=== PATIENT | male | born 1940 | race Caucasian/White ===

== ENCOUNTER → 2016-12-09 | Outpatient (CLI) | payer OTHER, BC ==
[~2016-12-09] VITALS: Ht 177.8 cm; Wt 146.2 kg
[~2016-12-09] MED LIST: AMLODIPINE BESY10 MG PO; APAP500 PO; CARTIA XT240 M1 PO; CITALOPRAM HBR40 MG PO; CLONAZEPAM0.25 MG PO; FLEXERIL PO; FLOMAX0.4 MG PO; FLONASE 0.05%50 MCG NASAL; GABAPENTIN 100100 MG PO; HYDRALAZINE 2525 MG PO; HYDROCHLOROTHIA25 M2 PO; LIALDA1.2 GM PO; LOMOTIL TABLET1 EACH PO; MOBIC15 MG PO; NORCO 5-325 TA1 EACH PO; OMEPRAZOLE10 MG PO; ONDANSETRON HCL4 M2 PO; PREDNISONE 20 M20 MG PO; PRINIVIL20 M1 PO; RITALIN5 MG PO; TRAMADOL 50 MG50 MG PO; TRAZODONE 150150 M1 PO
--- NOTE | ~2016-12-09 | HPC ---
[facility] [address] [email or web address] [address] PAIN MANAGEMENT CONSULTATION Name: FRANKLIN MCKEON [id number] Admission: 12/09/16 Attend Phys: Greg Longo DO Discharge: Date of : 41 Report #: [id number] THIS REPORT FOR: //name// CC: Juan R Longo The patient is a delightful 76-year-old gentleman I met, initially last June he was extremely disabled and we gave him a series of 3 lumbar epidural injections 06/21/2016, 07/05/2016 and 07/19/2016. Returns to pain clinic today noting those injections afforded dramatic relief, in fact he is significantly more functional. He is massively overweight, BMI is 46.3 kilograms per meter squared. He uses a walker to get around. He tells me that status post the injections he has had near 100% relief for 3-4 months, but is starting to develop more neurogenic claudication symptoms, states that if he stands greater than about 5 minutes his back feels "weak." He has ongoing pain in the low back. He rates his current pain at about 6 on a 0-10 visual analog scale. PHYSICAL EXAMINATION: Shows a 76-year-old gentleman, very jovial. BMI is 46.3 kilograms per meter squared. Blood pressure 158/82, pulse 84, respirations 20. Lower extremity strength is generally symmetric. Rises from chair using armrest. Diffuse tenderness across the low back, positive straight leg raise bilaterally. ASSESSMENT: Symptomatic lumbar radiculopathy, component of lumbar radiculopathy secondary to spinal stenosis, neurogenic claudication symptoms in a gentleman who takes tramadol for p.r.n. pain, gabapentin 100 mg one in the morning, 1 at noon, and 2 at night, multiple central acting agents including citalopram, clonazepam, trazodone. Uses p.r.n. tramadol for pain, meloxicam daily. Hydralazine and Prinivil as well as hydrochlorothiazide and amlodipine for hypertension. As noted on the EMR, blood pressure relatively controlled at , pulse 84, respirations are 20. ASSESSMENT: Symptomatic lumbar radiculopathy secondary to spinal stenosis in a patient with multiple comorbidities. RECOMMENDATION: We are going to repeat epidural injection sometime after December 20 (initial injection 06/21/2016). I talked about perhaps doing an injection every 2 months or more as needed for symptom management, strongly encouraged the patient increase physical activity. He is planning on moving to a detention facility where he may be able to participate in some physical therapy courses. Encouraged him to look into this activities as well. [address] [address] PAIN MANAGEMENT CONSULTATION Name: FRANKLIN MCKEON Room #: REG CLI Nish#: [id number] Admission: 12/09/16 Attend Phys: Greg Longo DO Discharge: Date of : 41 Report #: [id number] The patient discharged in good and stable condition. Follow up in 2 weeks for epidural injection under fluoroscopy. By: [id number] Greg Longo DO /nt
[2016-12-09 10:27] VITALS: BP 158/82
== END | disposition home or self-care (01) ==
LOC: PAIN 06:42
DX: M48.06 Spinal stenosis, lumbar region (principal); G89.29 Other chronic pain; I73.9 Peripheral vascular disease, unspecified; Z87.891 Personal history of nicotine dependence

== ENCOUNTER → 2016-12-26 | Outpatient (CLI) | payer OTHER, BC ==
[~2016-12-26] VITALS: Ht 177.8 cm; Wt 144.9 kg
--- NOTE | ~2016-12-26 | HPC ---
[facility] [place] [address] PAIN MANAGEMENT CONSULTATION Name: MIKEFRANKLIN HUITRONDOMINIC DOYLE Room #: REG [facility] Nancy.#: [id number] Admission: 12/26/16 Attend Phys: Greg Longo DO Discharge: Date of : 41 Report #: [id number] THIS REPORT FOR: //name// CC: Juan R Longo The patient is a 76-year-old gentleman being treated for lumbar radiculopathy secondary to spinal stenosis. He had a series of three epidural injections with 60-80% overall improvement of baseline pain. The pain has gradually begun to recur. It has been 6 months since his last injection started, we elected to repeat the cycle again today. We discussed this at last visit on 12/09/2016. He returns to pain clinic today, he is doing water aerobics with some increase in axial back pain, but notes his radicular pain continues to be problematic. Physical exam is unchanged from last visit for 12/09/2016, when we sought authorization for epidural injection today. ASSESSMENT: Symptomatic lumbar radiculopathy. PROCEDURE: Lumbar epidural injection under fluoroscopy. PROCEDURE NOTE: After both written and informed consent to include risk of spinal cord damage, increased pain, weakness and dural puncture, the patient was taken to the fluoroscopy suite, placed in the prone position. After sterile prep and drape, a skin wheal with lidocaine was raised. A 4-1/2-inch 22-gauge epidural Tuohy needle was inserted in the midline at L4-L5 with good loss to resistance. Negative aspiration for cerebrospinal fluid or blood was noted. Then 1 mL of Omnipaque under biplanar fluoroscopy showed good spread within the epidural space. This was followed with 80 mg of triamcinolone plus 1 mL of 1.5% preservative-free Xylocaine, 0.5 mL Xylocaine was then injected to flush the needle; it was removed. The patient was monitored for an appropriate period of time and discharged in good and stable condition. <ELECTRONICALLY SIGNED> By: Greg Longo DO 12/27/16 0704 1213 1531 Greg Longo DO /nt
[2016-12-26 11:10] VITALS: BP 157/74
== END | disposition home or self-care (01) ==
LOC: PAIN 07:05
DX: M48.06 Spinal stenosis, lumbar region (principal); Z87.891 Personal history of nicotine dependence

== ENCOUNTER → 2017-04-04 | Outpatient (CLI) | payer OTHER, BC ==
[~2017-04-04] VITALS: Ht 177.8 cm; Wt 151.5 kg
--- NOTE | ~2017-04-04 | HPC ---
[facility] [place] [address] PAIN MANAGEMENT CONSULTATION Name: MIKEFRANKLIN HUITRONDOMINIC DOYLE Room #: REG SORAYA Mock#: [id number] Admission: 04/04/17 Attend Phys: Greg Longo DO Discharge: Date of : 41 Report #: [id number] THIS REPORT FOR: //name// CC: Juan R Longo The patient is a 76-year-old gentleman being treated for symptomatic lumbar radiculopathy secondary to spinal stenosis. He is morbidly obese and has multiple comorbidities. He is not a surgical candidate. MRI of the lumbar spine notes large right paracentral disk at L4-L5, behind the L5 vertebral body causing mass effect on the right L5 nerve root. He had his last lumbar epidural injection in March (prior he had 3 injections in 2015). The patient reports today that lumbar epidural injection at L4-L5 at last visit afforded 70% relief for 10 weeks. Pain has gradually begun to recur. He notes pain in the low back, right buttock and leg. PHYSICAL EXAMINATION: Relatively unchanged, 76-year-old gentleman, BMI is 47.9 kilograms per meter squared. Vital signs stable as noted in the EMR. Rises chair using armrest, antalgic gait, uses a walker for balance. Positive straight leg raise on the right with decreased strength on this side. ASSESSMENT: Symptomatic lumbar radiculopathy secondary to spinal stenosis. RECOMMENDATIONS: Repeat epidural injection under fluoroscopy today. Follow up simply as needed. We will try and use these interventions as infrequently as possible, trying to get 2-3 months at a minimum between shots. PROCEDURE NOTE: Lumbar epidural injection under fluoroscopy. PROCEDURE: Lumbar epidural steroid injection. PROCEDURE NOTE: After both written and informed consent to include risk of spinal cord damage, increased pain, weakness and dural puncture, the patient was taken to the fluoroscopy suite, placed in the prone position. After sterile prep and drape, a skin wheal with lidocaine was raised. A 4.5-inch 20-gauge Tuohy needle was inserted in the midline at L4-L5 with good loss to resistance. Negative aspiration for cerebrospinal fluid or blood was noted. Then 1 mL of Omnipaque under biplanar fluoroscopy showed good spread within the epidural space. This was followed with 80 mg of triamcinolone plus 1 mL of 1.5% preservative-free Xylocaine, 0.5 mL Xylocaine was then injected to flush the needle; it was removed. The patient was monitored for an appropriate period of time and discharged in good and stable condition. <ELECTRONICALLY SIGNED> By: Greg Longo DO 04/07/17 1427 1216 1319 Greg Longo DO /nt
[2017-04-04 10:07] VITALS: BP 166/76
== END | disposition home or self-care (01) ==
LOC: PAIN 07:39
DX: M54.16 Radiculopathy, lumbar region (principal); M48.06 Spinal stenosis, lumbar region; Z87.891 Personal history of nicotine dependence

== ENCOUNTER → 2017-06-13 | Outpatient (CLI) | payer OTHER, BC ==
[~2017-06-13] VITALS: Ht 177.8 cm; Wt 151.2 kg
--- NOTE | ~2017-06-13 | HPC ---
[facility] [place] [address] PAIN MANAGEMENT CONSULTATION Name: MIKEFRANKLIN CERVANTES Room #: REG [facility] Nish#: [id number] Admission: 06/13/17 Attend Phys: Greg Longo DO Discharge: Date of : 41 Report #: [id number] THIS REPORT FOR: //name// CC: Juan R Longo HISTORY OF PRESENT ILLNESS: The patient is a pleasant 76-year-old gentleman well known to pain clinic, typically treated for symptomatic lumbar radiculopathy secondary to spinal stenosis. Comorbidities include morbid obesity. He is not a surgical candidate with multiple comorbidities including coronary artery disease. He has done well with occasional epidural injections that have kept him functional. Last injection was in December 26. Prior, he had had 3 injections in 2016. He returns to pain clinic today noting pain has begun to recur. It is primarily in the right low back, feels like his leg is about to give out. He uses a walker to get around. PHYSICAL EXAMINATION: Shows pleasant 76-year-old gentleman. BMI is quite elevated at 47.8 kilograms per meter squared. Vital signs are generally stable with nominal hypertension 157/86. Rises from chair using the armrest and walks with a walker. Diffuse tenderness across the low back. Favors the right leg. Positive straight leg raise on the right with slight decreased right leg strength. Reviewed diagnostic findings including MRI of the lumbar spine from June 2016. He has a large right paracentral disk protrusion at L4-L5. Again, not a surgical candidate comorbidities. RECOMMENDATION: Epidural injection under fluoroscopy today. Follow up simply as needed. ASSESSMENT: Symptomatic lumbar radiculopathy ____ spinal stenosis. PROCEDURE: Lumbar epidural injection under fluoroscopy. PROCEDURE NOTE: After both written and informed consent to include risk of spinal cord damage, increased pain, weakness and dural puncture, the patient was taken to the fluoroscopy suite, placed in the prone position. After sterile prep and drape, a skin wheal with lidocaine was raised. A 4.5 inch Tuohy needle was inserted in the midline at L3-L4 with good loss to resistance. Negative aspiration for cerebrospinal fluid or blood was noted. Then 1 mL of Omnipaque under biplanar fluoroscopy showed good spread within the epidural space. This was followed with 80 mg of triamcinolone plus 1 mL of 1.5% preservative-free Xylocaine, 0.5 mL Xylocaine was then injected to flush the needle; it was [address] [address] PAIN MANAGEMENT CONSULTATION Name: MIKEFRANKLIN Room #: REG CLTraci Mock#: [id number] Admission: 06/13/17 Attend Phys: Greg Longo DO Discharge: Date of : 41 Report #: [id number] removed. The patient was monitored for an appropriate period of time and discharged in good and stable condition. By: [id number] Greg Longo DO /jesús
[2017-06-13 14:24] VITALS: BP 157/86
== END | disposition home or self-care (01) ==
LOC: PAIN 07:36
DX: M54.16 Radiculopathy, lumbar region (principal); E66.01 Morbid (severe) obesity due to excess calories; I25.10 Atherosclerotic heart disease of native coronary artery without angina pectoris; Z68.42 Body mass index [BMI] 45.0-49.9, adult; Z87.891 Personal history of nicotine dependence

== ENCOUNTER → 2017-09-12 | Outpatient (CLI) | payer OTHER, BC ==
[~2017-09-12] VITALS: Ht 177.8 cm; Wt 148.5 kg
--- NOTE | ~2017-09-12 | HPC ---
[facility] [place] [address] PAIN MANAGEMENT CONSULTATION Name: MIKEFRANKLIN HUITRONDOMINIC DOYLE Room #: REG [facility] Nancy.#: [id number] Admission: 09/12/17 Attend Phys: Greg Longo DO Discharge: Date of : 41 Report #: [id number] THIS REPORT FOR: //name// CC: Juan R Longo The patient is a 77-year-old gentleman, long known to pain clinic, typically treated for lumbar radiculopathy. He does well with occasional epidural injections, last injection was 06/13/2017. He prior had an injection 12/26/2016, and 3 injections in 2015. He returns to pain clinic today noting the injection afforded good relief, specifically 85% for about 2-1/2 months; He was able to stand and walk with less pain, the pain has gradually begun to recur. He is relocated to [facility]. He states he has to walk to his meals with his walker, it takes about 5 minutes, which is his maximum stamina. He uses a walker 100% of the time to ambulate. He notes pain is in the low back, both legs. Has neurogenic claudication qualities. PHYSICAL EXAMINATION: Relatively unchanged, a 77-year-old gentleman, BMI is elevated at 47 kg/m2. Vital signs are stable as noted on the EMR. Rises from chair using armrest with great difficulty. He can stand at his walker. Ongoing axial back pain with lumbar radicular component. Lower extremity strength is diminished. Straight leg raise positive grossly bilaterally. Reviewed his MRI from 2016, noting a large right paracentral disk at L4-L5, vacuum phenomena at L5-S1, DJD throughout the lumbar spine. ASSESSMENT: Symptomatic lumbar radiculopathy, clinical exam and history. PROCEDURE: Lumbar epidural injection under fluoroscopy. PROCEDURE NOTE: After both written and informed consent to include risk of spinal cord damage, increased pain, weakness and dural puncture, the patient was taken to the fluoroscopy suite, placed in the prone position. After sterile prep and drape, a skin wheal with lidocaine was raised. A 22-gauge epidural Tuohy needle was inserted in the midline at L4-L5 with good loss to resistance. Negative aspiration for cerebrospinal fluid or blood was noted. Then 1 mL of Omnipaque under biplanar fluoroscopy showed good spread within the epidural space. This was followed with 80 mg of triamcinolone plus 1 mL of 1.5% preservative-free Xylocaine, 0.5 mL Xylocaine was then injected to flush the [address] [address] PAIN MANAGEMENT CONSULTATION Name: FRANKLIN MCKEON [facility] [id number] Admission: 09/12/17 Attend Phys: Greg Longo DO Discharge: Date of : 41 Report #: [id number] needle; it was removed. The patient was monitored for an appropriate period of time and discharged in good and stable condition. <ELECTRONICALLY SIGNED> By: Greg Longo DO 09/15/17 0731 1427 1929 Greg Longo DO /nt
[2017-09-12 12:32] VITALS: BP 145/65
== END | disposition home or self-care (01) ==
LOC: PAIN 06:48
DX: M54.16 Radiculopathy, lumbar region (principal); G89.29 Other chronic pain; Z98.890 Other specified postprocedural states; Z87.891 Personal history of nicotine dependence; Z79.899 Other long term (current) drug therapy

== ENCOUNTER → 2017-12-08 | Outpatient (CLI) | payer OTHER, BC ==
[~2017-12-08] VITALS: Ht 177.8 cm; Wt 147.0 kg
--- NOTE | ~2017-12-08 | HPC ---
[facility] [address] [address] [place] [address] PAIN MANAGEMENT CONSULTATION Name: FRANKLIN MCKEON JR Room #: REG SORAYA Mock#: [id number] Admission: 12/08/17 Attend Phys: Greg Longo DO Discharge: Date of : 41 Report #: [id number] THIS REPORT FOR: //name// CC: Juan R Longo DATE OF SERVICE: 12/08/2017 The patient is a very pleasant 77-year-old gentleman, long known to the Pain Clinic, typically treated for lumbar radiculopathy secondary to spinal stenosis. He has done well with occasional epidural injections. He had 3 in 2016, December, March and June. He was seen on 09/12/2017. We did an epidural injection at that time. He returns to the Pain Clinic today noting he had excellent relief, 100% relief for 3 months, but pain has begun to recur without antecedent trauma and overuse. The patient lives at [facility]. To his credit, he has a small gym area in his room and he works out daily. He is actually moving better than I have seen him in a number of years. He has a walker with him, but he gets up from the chair with minimal use from the handrails. He walks well. His balance is good. He tells me he went to a wedding this past weekend and actually danced some. At [facility], they have very long hallways. They do have a handrail, but he states he never uses his walker. There he walks a great deal. His physical ability today is fairly remarkable compared to prior visits. He remains obese with a BMI of 46.5 kg/m2, though again he does appear to be much more stable on his feet and gait appears to be much less antalgic. PHYSICAL EXAMINATION: Shows 77-year-old gentleman, BMI is 46.5 kg/m2. Blood pressure is 147/77, pulse 87, respirations are 16. Subjective pain score is 8 on a VAS. He has not fallen in 3 months. He rises from the chair as noted. Gait is generally tandem, though he still has modestly positive straight leg raise bilaterally. He has diffuse tenderness across the low back. DIAGNOSTIC STUDIES: We reviewed diagnostic findings including MRI from 06/21/2016. He has large right paracentral disk at L4-L5. He has disk space narrowing in L5-S1, facet degenerative changes at this level as well. ASSESSMENT: Symptomatic lumbar radiculopathy secondary to spinal stenosis in a gentleman who has done very well with occasional epidural injections, typically near 100% relief. Again, to his credit, he has been doing a great deal of exercise and has been working out. It appears that his functional status is better than it has been in years. RECOMMENDATION: Epidural injection under fluoroscopy today at L5-S1. Follow up simply as needed. Continue core exercise range of motion. We did discuss [address] [address] PAIN MANAGEMENT CONSULTATION Name: FRANKLIN MCKEON JR Room #: REG SORAYA Mock#: [id number] Admission: 12/08/17 Attend Phys: Greg Longo DO Discharge: Date of : 41 Report #: [id number] dietary discretion, poor weight reduction as well. ASSESSMENT: Symptomatic lumbar radiculopathy secondary to spinal stenosis. PROCEDURE: Lumbar epidural injection under fluoroscopy. PROCEDURE NOTE: After both written and informed consent to include risk of spinal cord damage, increased pain, weakness and dural puncture, the patient was taken to the fluoroscopy suite, placed in the prone position. After sterile prep and drape, a skin wheal with lidocaine was raised. A 4.5 inch 20-gauge epidural Tuohy needle was inserted in the midline at L5-S1 with good loss to resistance. Negative aspiration for cerebrospinal fluid or blood was noted. Then 1 mL of Omnipaque under biplanar fluoroscopy showed good spread within the epidural space. This was followed with 80 mg of triamcinolone plus 1 mL of 1.5% preservative-free Xylocaine, 0.5 mL Xylocaine was then injected to flush the needle; it was removed. The patient was monitored for an appropriate period of time and discharged in good and stable condition. By: [id number] Greg Longo DO /nt
[2017-12-08 10:31] VITALS: BP 147/77
== END | disposition home or self-care (01) ==
LOC: PAIN 07:18
DX: M54.16 Radiculopathy, lumbar region (principal); M48.061 Spinal stenosis, lumbar region without neurogenic claudication; Z68.42 Body mass index [BMI] 45.0-49.9, adult

== ENCOUNTER → 2018-02-26 | Outpatient (CLI) | payer OTHER, BC ==
[~2018-02-26] VITALS: Ht 177.8 cm; Wt 147.3 kg
--- NOTE | ~2018-02-26 | HPC ---
[facility] [address] [place] [address] PAIN MANAGEMENT CONSULTATION Name: FRANKLIN MCKEON JR Room #: REG [facility] Nish#: [id number] Admission: 02/26/18 Attend Phys: Greg Longo DO Discharge: Date of : 41 Report #: [id number] THIS REPORT FOR: //name// CC: Juan R Longo The patient is a very pleasant 77-year-old gentleman, long treated for symptomatic lumbar radiculopathy secondary to spinal stenosis, comorbidities are morbid obesity and general deconditioning. He had 3 lumbar epidural injections in 2017, always has good improvement of symptoms and in 2018, he has had an injection in September and last injection was 12/08/2017. The patient returns to pain clinic today noting last injection again afforded significant (80%) relief for about 2 months. He is able to walk and stand with much less pain. He actually walks a little bit without his walker initially. Pain has begun to recur without antecedent trauma and overuse. Rates his pain an 8 on a VAS. Pain is across the low back, buttocks and legs, chronic, sharp pain, exacerbated with moving, standing and walking. He is back to using a walker, nearly 100% of the time with ambulation. Notes legs are getting a little bit weaker though he is in general getting a little more deconditioned. He lives at [facility] PHYSICAL EXAMINATION: Shows a pleasant 77-year-old gentleman, BMI is quite elevated at 46.6 kilograms per meter squared. Blood pressure is 142/82, pulse 72, respirations 22. Room air oxygen saturation is 97%. Subjective pain score is 8 on a VAS. He has not fallen in the last 3 months. Rises from the chair with difficulty. Diffuse tenderness across the low back, antalgic gait, positive straight leg raise bilaterally. ASSESSMENT: Symptomatic lumbar radiculopathy secondary to spinal stenosis in a gentleman with morbid obesity and general deconditioning. RECOMMENDATION: Repeat epidural injection under fluoroscopy today at L5-S1. Follow up simply as needed. ASSESSMENT: Symptomatic lumbar radiculopathy secondary to spinal stenosis. PROCEDURE: Lumbar epidural injection under fluoroscopy. PROCEDURE NOTE: After both written and informed consent to include risk of spinal cord damage, increased pain, weakness and dural puncture, the patient was taken to the fluoroscopy suite, placed in the prone position. After sterile prep and drape, a skin wheal with lidocaine was raised. A 4.5 inch 20-gauge epidural Tuohy needle was inserted in the midline at L5-S1 with good loss to resistance. Negative aspiration for cerebrospinal fluid or blood was noted. Then 1 mL of Omnipaque under biplanar fluoroscopy showed good spread within the epidural space. This was followed with 80 mg of triamcinolone plus 1 mL of 1.5% preservative-free Xylocaine, 0.5 mL Xylocaine was then injected to flush the [address] [address] PAIN MANAGEMENT CONSULTATION Name: FRANKLIN MCKEON Room #: REG SORAYA Mock#: [id number] Admission: 02/26/18 Attend Phys: Greg Longo DO Discharge: Date of : 41 Report #: [id number] needle; it was removed. The patient was monitored for an appropriate period of time and discharged in good and stable condition. <ELECTRONICALLY SIGNED> By: Greg Longo DO 02/27/18 0822 1212 [id number] Greg Longo DO /nt
[2018-02-26 08:55] VITALS: BP 142/82
== END | disposition home or self-care (01) ==
LOC: PAIN 06:52
DX: M48.061 Spinal stenosis, lumbar region without neurogenic claudication (principal); M54.16 Radiculopathy, lumbar region; G89.29 Other chronic pain; E66.01 Morbid (severe) obesity due to excess calories; Z68.42 Body mass index [BMI] 45.0-49.9, adult; Z98.890 Other specified postprocedural states; Z87.891 Personal history of nicotine dependence; Z79.899 Other long term (current) drug therapy

== ENCOUNTER → 2018-06-02 | Outpatient (CLI) | payer OTHER, BC ==
[~2018-06-02] VITALS: Ht 177.8 cm; Wt 144.8 kg
--- NOTE | ~2018-06-02 | HPC ---
[facility] [place] [address] PAIN MANAGEMENT CONSULTATION Name: MIKEFRANKLIN CERVANTES Room #: REG [facility].#: [id number] Admission: 06/02/18 Attend Phys: Juan R Longo DO Discharge: Date of : 41 Report #: [id number] THIS REPORT FOR: //name// CC: Juan R Longo DATE OF SERVICE: 06/02/2018 REFERRING PHYSICIAN: Juan R Goldstein DO CHIEF COMPLAINT: Low back pain; bilateral lower extremity pain, right greater than left. HISTORY OF PRESENT ILLNESS: As you know, the patient is a pleasant 77-year-old male who returns today in followup visit with recurrent low back pain; bilateral lower extremity pain, right greater than left. He describes the pain as chronic in nature. He uses descriptors such as sharp, numbness and tingling when describing symptoms. He places his pain score today 5/10. Pain is exacerbated with movement, standing, walking; improves with sitting and medication as well as previous epidural injections. The patient typically undergoes epidural injections about every 3 months with 80% improvement in overall pain. He returns today, requesting next in the series of epidural injections. He denies any new injury or trauma that may have led to symptom recurrence. ALLERGIES: No known drug allergies. CURRENT MEDICATIONS: Amlodipine, hydrochlorothiazide, tramadol, tamsulosin, hydralazine, lisinopril, meloxicam, gabapentin, trazodone, clonazepam, citalopram. SOCIAL HISTORY: The patient denies tobacco, alcohol, IV or illicit drug use. He is retired. He is unaccompanied today. IMAGING: No new imaging available. PQRS: The patient has known osteoarthritis of the low back, bilateral hips and bilateral knees. No rheumatoid arthritis. He is placing his current pain score 5/10. He is a fall risk, but has not had a fall in the last 3 months. He does use a roller walker for ambulation. He is treated for hypertension, but is not on any blood thinners. Pain impact score elevated. PHYSICAL EXAMINATION: VITAL SIGNS: Blood pressure 132/70, pulse 94, respiratory rate 22 and unlabored. The patient is 100% on room air. Height 5 feet 10 inches tall, weight 319.2 pounds, BMI calculated 45.8. [address] [address] PAIN MANAGEMENT CONSULTATION Name: FRANKLIN MCKEON Room #: [facility]#: [id number] Admission: 06/02/18 Attend Phys: Juan R Longo DO Discharge: Date of : 41 Report #: [id number] GENERAL: Well-developed, well-nourished, well-hydrated, class 3 morbidly obese 77-year-old male appearing stated age, placing current pain score 5/10. HEENT: Normocephalic, atraumatic. Pupils equal, round, reactive to light. Extraocular muscles are intact. EXTREMITIES: Show no clubbing, no cyanosis. There is 1+ nonpitting lower extremity edema. MUSCULOSKELETAL: Seated straight leg raise negative. Supine straight leg raising positive on the left. Patricia's test is negative. Gait antalgic, favoring right lower extremity over left. Ankle clonus negative. Babinski is negative. ASSESSMENT: 1. Lumbar radiculopathy. 2. Spinal stenosis of the lumbar spine. 3. Displacement of lumbar intervertebral disk with radiculopathy. 4. Lumbosacral spondylosis with radiculopathy. 5. Lumbar degeneration. 6. Morbid obesity. 7. Chronic intractable pain. PLAN: 1. The patient returns today in followup visit, requesting to undergo next in the series of epidural injections under fluoroscopic guidance. The patient has noted 80% improvement in overall pain with previous epidural injections. He is very pleased with response to the epidural injections and wishes to continue this therapy. He has returned, requesting this injection to be provided today. I have advised the patient of the risks and benefits of the procedure, states he understood and wished to proceed. 2. No medication changes made at today's visit. The patient to continue current medical therapy as previously prescribed. 3. We will see the patient back in followup visit on an as-needed basis for the possible next in the series of epidural injections. PROCEDURE NOTE DESCRIPTION OF PROCEDURE: L5-S1 right paramedian epidural steroid injection under fluoroscopic guidance. After obtaining written consent, the patient was taken back to fluoroscopy suite, placed in prone position with pillow under abdomen to decrease lumbar lordosis. Skin overlying lumbosacral area then prepped and draped in aseptic fashion. L5-S1 vertebral interspace identified by AP fluoroscopy. Skin and subcutaneous tissue overlying target site of injection was anesthetized with 3 mL of 1% lidocaine. A 20-gauge 4-1/2 inch Tuohy needle advanced under fluoroscopic guidance towards [address] [address] PAIN MANAGEMENT CONSULTATION Name: FRANKLIN MCKEON JR Room #: REG [facility] Mock#: [id number] Admission: 06/02/18 Attend Phys: Juan R Longo DO Discharge: Date of : 41 Report #: [id number] the epidural space using a right paramedian approach. Epidural space identified using loss of resistance to air technique. After negative aspiration for heme or cerebrospinal fluid, 1 mL of Isovue injected. Lumbar epidurogram confirmed using both AP and lateral fluoroscopy. After negative aspiration for heme or cerebrospinal fluid, 5 mL of a solution containing 2 mL 40 mg per mL, 80 mg total triamcinolone, 3 mL lidocaine 1% injected slowly. Needle retracted intermediate, flushed with 1 mL of 1% lidocaine and removed. Sterile bandage placed over injection site. No new motor deficits present within the lower extremity following procedure. The patient tolerated procedure well, carefully escorted to recovery room in stable condition. No apparent complication. After meeting discharge criteria, the patient discharged home. <ELECTRONICALLY SIGNED> By: Juan R Longo DO 06/09/18 [id number] Juan R Longo DO /nt
[2018-06-02 08:38] VITALS: BP 132/70
== END | disposition home or self-care (01) ==
LOC: PAIN 07:13
DX: M51.16 Intervertebral disc disorders with radiculopathy, lumbar region (principal); M48.061 Spinal stenosis, lumbar region without neurogenic claudication; M47.27 Other spondylosis with radiculopathy, lumbosacral region; G89.29 Other chronic pain; E66.01 Morbid (severe) obesity due to excess calories; Z68.42 Body mass index [BMI] 45.0-49.9, adult; Z79.899 Other long term (current) drug therapy; Z87.891 Personal history of nicotine dependence; Z98.890 Other specified postprocedural states

== ENCOUNTER → 2018-08-13 | Outpatient (CLI) | payer OTHER, BC | LOC: RAD 14:10 | DX: M25.552 Pain in left hip (principal) ==

== ENCOUNTER → 2018-08-21 | Outpatient (CLI) | payer OTHER, BC ==
[2018-08-21 08:50] LABS: HEMATOCRIT 39.6 % (42.0-52.0); HEMOGLOBIN 13.7 gm/dL (14.0-18.0); MCH 31.9 pg (26.0-34.0); MCHC 34.6 g/dL (28.0-37.0); MCV 92.3 fL (80.0-100.0); RBC 4.28 mil/uL (4.50-6.00); RDW 12.8 % (10.5-14.5); WBC 6.6 thou/uL (4.0-11.0)
[2018-08-21 08:59] LABS: CALCIUM 10.1 mg/dL (8.5-10.1); CREATININE 1.2 mg/dL (0.7-1.3); POTASSIUM 3.2 mmol/L (3.5-5.1)
[2018-08-21 09:09] LABS: PROTIME 10.2 Seconds (9.3-11.4)
== END | disposition home or self-care (01) ==
LOC: SPEC 07:56
PROVIDERS: Radiology Vascular & Interventional Radiology
DX: M51.36 Other intervertebral disc degeneration, lumbar region (principal); M48.061 Spinal stenosis, lumbar region without neurogenic claudication; M54.5 Low back pain; G89.29 Other chronic pain; Z79.899 Other long term (current) drug therapy; Z98.890 Other specified postprocedural states

== ENCOUNTER → 2018-09-16 | Outpatient (CLI) | payer OTHER, BC ==
[~2018-09-16] VITALS: Ht 177.8 cm; Wt 141.3 kg
--- NOTE | ~2018-09-16 | HPC ---
[facility] [address] [place] [address] PAIN MANAGEMENT CONSULTATION Name: FRANKLIN MCKEON Room #: REG [facility] M..#: [id number] Admission: 09/16/18 Attend Phys: Juan R Longo DO Discharge: Date of : 41 Report #: [id number] THIS REPORT FOR: //name// CC: Juan R Fuller DATE OF SERVICE: 09/16/2018 REFERRING PHYSICIAN: Juan R Hsu DO. CHIEF COMPLAINT: Low back pain and bilateral lower extremity pain with paresthesias, right greater than left. HISTORY OF PRESENT ILLNESS: As you know, the patient is a pleasant 78-year-old male who returns today in followup visit reporting a pain score of 10/10. He indicates no new injury, no new trauma or any changes in medical history since our last visit. He describes the pain as sharp, exacerbated with sitting, walking, improves with standing and medications as well as previous, more aggressive treatment options. He reports 80% improvement in overall pain with previous epidural injection provided in May of 2018. He returns today requesting to undergo next in the series in hopes of improving pain further. He is indicating pain that has progressively worsened. ALLERGIES: No known drug allergies. CURRENT MEDICATIONS: Amlodipine 10 mg once a day; hydrochlorothiazide 25 mg once a day; tramadol 50 mg p.r.n.; 0.4 mg once a day; hydralazine 25 mg once a day; lisinopril 20 mg twice a day; meloxicam 15 mg once a day; gabapentin 100 mg in the morning, 100 mg noon and 200 mg at night; trazodone 150 mg p.o. at bedtime; clonazepam 0.25 mg twice a day and citalopram 40 mg once a day. SOCIAL HISTORY: The patient denies tobacco, alcohol or IV or illicit drug use. He is retired, retired years ago. He is unaccompanied today. IMAGING DATA: No new imaging available. PQRS: The patient has known osteoarthritic changes of the low back, bilateral hips and bilateral knees. No rheumatoid arthritis. Placing pain intensity today 10/. He is a fall risk, but has not had a fall in the last 3 months. He is on blood thinners. He is treated for hypertension. He has been on long-term opioid medication. He has a [id number] risk of opioid addiction. Pain impact score indicates 13/70, indicating mild interference of daily [place] [address] PAIN MANAGEMENT CONSULTATION Name: FRANKLIN MCKEON [facility] [id number] Admission: 09/16/18 Attend Phys: Juan R Longo DO Discharge: Date of : 41 Report #: [id number] PHYSICAL EXAMINATION: VITAL SIGNS: Blood pressure 170/77, pulse 64 and respiratory rate 20 and unlabored. The patient is 97% on room air. Height 5 feet 10 inches tall, weight 311.6 pounds and BMI calculated 44.7. GENERAL: Well-developed, well-nourished and well-hydrated, class 3, morbidly obese 78-year-old male appearing stated age, placing current pain score 10/10. HEENT: Normocephalic and atraumatic. Pupils equal, round and reactive to light. EXTREMITIES: Show no clubbing, no cyanosis and no edema. MUSCULOSKELETAL: Seated straight leg raising negative. Supine straight leg raising positive on the left. Patricia's test negative. Gait mildly antalgic favoring left lower extremity over right. He is using a roller walker for ambulation. Ankle clonus negative. Babinski is negative. ASSESSMENT: 1. Symptomatic lumbar radiculopathy. 2. Spinal stenosis of the lumbar spine. 3. Displacement of the lumbar intervertebral disk with radiculopathy. 4. Lumbosacral spondylosis with radiculopathy. 5. Lumbar degeneration. 6. Class 3 morbidly obese. 7. Chronic intractable pain. 8. Essential hypertension. PLAN: 1. The patient returns today in followup visit requesting to undergo a lumbar epidural injection under fluoroscopic guidance to address lumbar radicular symptoms. He indicates increasing pain level of 10/10 for which he wants to undergo the procedure today. He has been advised of the risks and benefits, states understood and wished to proceed. 2. The patient's blood pressure noted to be elevated today. Blood pressure is 177/70 with a pulse is 64 indicating that this is essential hypertension and not related to sympathetic discharge due to pain. Recommend the patient contact his PCP immediately and be seen in followup visit to make adjustments in their medications as required. 3. No medication changes made at our visit today. He is to continue current medical therapy as prior prescribed. 4. We will see the patient back in followup visit on an as needed basis for possible next in the series of lumbar epidural injections. PROCEDURE NOTE DESCRIPTION OF PROCEDURE: L5-S1 interlaminar epidural steroid injection under fluoroscopic guidance. After obtaining written consent, the patient was taken back to fluoroscopy [address] [address] PAIN MANAGEMENT CONSULTATION Name: FRANKLIN MCKEON JR Room #: REG CLI [facility]#: [id number] Admission: 09/16/18 Attend Phys: Juan R Longo DO Discharge: Date of : 41 Report #: [id number] suite, placed in prone position with pillow under abdomen to decrease lumbar lordosis. Skin overlying lumbosacral area then prepped and draped in aseptic fashion. The L5-S1 vertebral interspace was identified by AP fluoroscopy. Skin and subcutaneous tissue overlying the target site of injection anesthetized with 3 mL of 1% lidocaine. A 20-gauge 4-1/2 inch Tuohy needle advanced under fluoroscopic guidance towards the epidural space using a midline approach. Epidural space identified using loss of resistance to air technique. After negative aspiration for heme or cerebrospinal fluid, 1 mL of Omnipaque injected. A lumbar epidurogram confirmed using both AP and lateral fluoroscopy. After negative aspiration for heme or cerebrospinal fluid, 5 mL of a solution containing 2 mL 40 mg per mL, 80 mg total triamcinolone, 3 mL lidocaine 1% injected slowly. Needle retracted half-way, flushed with 1 mL of 1% lidocaine and removed. Sterile bandage placed over injection site. No new motor deficits present in the lower extremity following procedure. The patient tolerated procedure well, carefully escorted to recovery room in stable condition. No apparent complication. After meeting discharge criteria, the patient discharged home. By: [id number] Juan R Longo DO /nt
[2018-09-16 09:55] VITALS: BP 170/77
--- NOTE | 2018-09-16 10:10 | NUR ---
Pain Clinic Assessment: 1. History of Osteoarthritis: Not Applicable History of Rheumatoid Arthritis: Not Applicable 2. Height: 5 ft. 10 in. 177.8 cm. Weight: 311.6 lb. oz. 141.341 kg. Patient's BMI: 44.7 3. Vital Signs: BP: 170/77 Pulse: 64 Resp: 20 Temp: 02 Sat: 97 ECG Mon: 4. Pain Intensity: 10 5. Fall Risk: Dizziness: N Needs help standing or walking: Y Fallen in the last 3 months: N Fall risk comments: 6. Patient on Blood Thinner: None 7. History of Hypertension: Y 8. Opioid Therapy greater than 6 weeks: Y Opiate Contract Signed: 9. Risk Assessment Tool Provided: 6-mod 10. Functional Assessment Tool: 11. Recreational Drug Use: Never Drug Type: Tobacco Use: Former Smoker Tobacco Type: Amount or Packs/day: How Many Years: Alcohol Use: Past use Frequency: Quant:
== END | disposition home or self-care (01) ==
LOC: PAIN 06:54 → CAT 06:54
DX: M51.16 Intervertebral disc disorders with radiculopathy, lumbar region (principal); M48.061 Spinal stenosis, lumbar region without neurogenic claudication; M47.27 Other spondylosis with radiculopathy, lumbosacral region; E66.01 Morbid (severe) obesity due to excess calories; G89.29 Other chronic pain; I10 Essential (primary) hypertension; M19.90 Unspecified osteoarthritis, unspecified site; Z79.899 Other long term (current) drug therapy; Z79.891 Long term (current) use of opiate analgesic; Z68.41 Body mass index [BMI] 40.0-44.9, adult

== ENCOUNTER → 2018-10-20 | Outpatient (CLI) | payer OTHER, BC ==
[~2018-10-20] VITALS: Ht 177.8 cm; Wt 141.1 kg
--- NOTE | ~2018-10-20 | HPC ---
[facility] [place] [address] PAIN MANAGEMENT CONSULTATION Name: FRANKLIN MCKEON Room #: REG [facility].#: [id number] Admission: 10/20/18 Attend Phys: Juan R Longo DO Discharge: Date of : 41 Report #: [id number] THIS REPORT FOR: //name// CC: Juan R iN MD DATE OF SERVICE: 10/20/2018 CHIEF COMPLAINT: Low back pain, left buttock and posterolateral thigh pain. HISTORY OF PRESENT ILLNESS: As you know, the patient is a pleasant 78-year-old male returning in followup visit per the request of Dr. Dwayne Ni to undergo a left intraarticular hip injection under fluoroscopic guidance. The patient was referred to our clinic to trial this injection and determine if his symptoms are related to his left hip. Apparently, the patient underwent x-ray imaging of the left hip, which showed mild arthritic changes in the area. He has been referred to trial a left intraarticular hip injection today. If symptoms are improved, he is to follow up with Dr. Ni for possible surgical discussion. He reports today pain level of around 9/10, exacerbated with walking and standing, improves with rest and relaxation. ALLERGIES: No known drug allergies. CURRENT MEDICATIONS: Amlodipine, hydrochlorothiazide, tramadol, tamsulosin, hydralazine, lisinopril, meloxicam, gabapentin, trazodone, clonazepam, citalopram. SOCIAL HISTORY: The patient denies tobacco, alcohol, IV or illicit drug use. He is retired, retired years ago. He is accompanied by sister present in room today. PQRS: The patient has osteoarthritic changes of the lumbar spine, bilateral hips, bilateral knees. No rheumatoid arthritis. The patient is placing pain intensity today 9/10. He is a fall risk, but has not had a fall in the last 3 months. He is not on blood thinners. He is treated for hypertension. He has been on chronic opioids and has a moderate risk of opioid addiction. He is placing pain impact score 13/70 indicating mild interference of daily activities secondary to pain. PHYSICAL EXAMINATION: VITAL SIGNS: Blood pressure 149/72, pulse is 65, respiratory rate 20 and unlabored. The patient is 100% on room air. Height 5 feet 10 inches tall, weight 311 pounds, BMI calculated 44.6[place] [address] PAIN MANAGEMENT CONSULTATION Name: FRANKLIN MCKEON JR [facility]: [facility] [id number] Admission: 10/20/18 Attend Phys: Juan R Longo DO Discharge: Date of : 41 Report #: [id number] GENERAL: Well-developed, well-nourished, well-hydrated, class 3, morbidly obese 78-year-old male appearing stated age, placing current pain score 9/10. HEENT: Normocephalic, atraumatic. Pupils are equal, round, reactive to light. Extraocular muscles are intact. Speech fluent. The patient deemed a poor historian. EXTREMITIES: Show no clubbing, no cyanosis, no edema. MUSCULOSKELETAL: Seated straight leg raising negative. Supine straight leg raising mildly positive to left. Patricia's test is equivocal on the left, negative right. Gait is mildly antalgic favoring left lower extremity over right. ASSESSMENT: 1. Left hip pain. 2. Left hip osteoarthritis. 3. Symptomatic lumbar radiculopathy. 4. Spinal stenosis of the lumbar spine. 5. Displacement of lumbar intervertebral disk with radiculopathy. 6. Lumbosacral spondylosis with radiculopathy. 7. Lumbar degeneration. 8. Class 3, morbidly obese. 9. Chronic intractable pain. PLAN: 1. The patient has been referred back to our clinic by Dr. Dwayne Ni, the patient's orthopedic surgeon, to undergo a left intraarticular hip injection. He has requested that the patient undergo this procedure today to determine if his left hip may be the source of some of his discomfort. The distribution of symptoms would indicate less hip related and more of a spinal stenosis picture, but he does have equivocal Chayo's test left and negative right. He has been referred back to our clinic to trial this injection per the request of Dr. Ni to determine if his left hip may be contributing to some of his pain. We discussed the risks and benefits of a left intraarticular hip injection today. We discussed the risk that include but are not necessarily limited to bleeding, bruising, infection, worsening pain, no relief of pain, also risk of temporary or permanent muscle weakness, temporary or permanent nerve damage, possible paralysis, joint destruction or . The patient states understood and wished to proceed. 2. No medication changes made at today's visit. 3. The patient will contact Dr. Ni's office in regards to efficacy with the injection provided today. They will then discuss whether or not repeating an intra-articular hip injection would be recommended or looking towards further imaging and discussion of surgical options involving that left hip. He will contact our clinic after he has had this discussion with Dr. Ni to advise us of the treatment course. [address] [address] PAIN MANAGEMENT CONSULTATION Name: FRANKLNI MCKEON JR Room #: REG [facility]#: [id number] Admission: 10/20/18 Attend Phys: Juan R Longo DO Discharge: Date of : 41 Report #: [id number] PROCEDURE NOTE: DESCRIPTION OF PROCEDURE: Left intra-articular hip injection under fluoroscopic guidance. After obtaining written consent, the patient was taken back to fluoroscopy suite, placed in a supine position. The image intensifier was then brought into position over the left hip and AP imaging was obtained. The area overlying the hip injection was then prepped and draped in aseptic fashion using chlorhexidine. A sterile marker was then placed over the injection site. Next, a 25-gauge 1-1/4 inch needle was then used to anesthetize skin and subcutaneous tissue with 3 mL of 1% lidocaine. A 22-gauge 4-1/2 inch spinal needle with bent tip was advanced towards the left hip under fluoroscopic guidance. Needle was advanced until reaching the proximal head of the femur. Needle was then retracted approximately 1 mm and aspiration noted to be negative for heme. After negative aspiration for heme, 1 mL of Omnipaque injected demonstrating an excellent left hip arthrogram. After negative aspiration for heme, 5 mL of a solution containing 1 mL 40 mg per mL, 40 mg total triamcinolone, 4 mL bupivacaine 0.5% injected slowly. Needle retracted shelter, flushed with 1 mL of 1% lidocaine and then removed. Sterile bandage placed over injection site. There were no new motor deficits present in lower extremity following procedure. The patient tolerated procedure well, carefully escorted to recovery room in stable condition. No apparent complications. After meeting discharge criteria, the patient was discharged home. By: [id number] Juan R Longo DO /nt
[2018-10-20 09:47] VITALS: BP 149/72
--- NOTE | 2018-10-20 10:04 | NUR ---
Pain Clinic Assessment: 1. History of Osteoarthritis: Not Applicable History of Rheumatoid Arthritis: Not Applicable 2. Height: 5 ft. 10 in. 177.8 cm. Weight: 311.0 lb. oz. 141.069 kg. Patient's BMI: 44.6 3. Vital Signs: BP: 149/72 Pulse: 65 Resp: 20 Temp: 02 Sat: 100 ECG Mon: 4. Pain Intensity: 9 5. Fall Risk: Dizziness: N Needs help standing or walking: Y Fallen in the last 3 months: N Fall risk comments: 6. Patient on Blood Thinner: None 7. History of Hypertension: Y 8. Opioid Therapy greater than 6 weeks: Y Opiate Contract Signed: 9. Risk Assessment Tool Provided: 6-mod 10. Functional Assessment Tool: 11. Recreational Drug Use: Never Drug Type: Tobacco Use: Former Smoker Tobacco Type: Amount or Packs/day: How Many Years: Alcohol Use: Past use Frequency: Quant:
== END | disposition home or self-care (01) ==
LOC: PAIN 06:46
DX: M16.12 Unilateral primary osteoarthritis, left hip (principal); M25.552 Pain in left hip; M19.90 Unspecified osteoarthritis, unspecified site; M51.16 Intervertebral disc disorders with radiculopathy, lumbar region; M48.061 Spinal stenosis, lumbar region without neurogenic claudication; M47.27 Other spondylosis with radiculopathy, lumbosacral region; E66.01 Morbid (severe) obesity due to excess calories; I10 Essential (primary) hypertension; G89.29 Other chronic pain; Z68.41 Body mass index [BMI] 40.0-44.9, adult; Z79.899 Other long term (current) drug therapy; Z98.890 Other specified postprocedural states; Z87.891 Personal history of nicotine dependence; Z79.891 Long term (current) use of opiate analgesic

== ENCOUNTER 2018-12-13 18:09 | Inpatient (IN) | payer OTHER, BC ==
[~2018-12-13] VITALS: Ht 177.8 cm; Wt 137.9 kg
[2018-12-13 18:10] VITALS: BP 146/63
[2018-12-13 19:12] LABS: URINE BILIRUBIN NEGATIVE (Negative); URINE BLOOD NEGATIVE (Negative); URINE CLARITY CLEAR; URINE COLOR YELLOW; URINE GLUCOSE-RANDOM* NEGATIVE (Negative); URINE KETONES NEGATIVE (Negative); URINE LEUKOCYTES-REFLEX NEGATIVE (Negative); URINE NITRITE-REFLEX NEGATIVE (Negative); URINE PROTEIN (DIPSTICK) NEGATIVE (Negative)
[2018-12-13] MEDS ORDERED: NORCO 5-325 TA1 EACH PO (19:53)
[2018-12-13 21:53] VITALS: BP 121/89
[2018-12-13 22:06] VITALS: BP 125/72
[2018-12-13 22:34] VITALS: BP 157/80
--- NOTE | 2018-12-14 02:49 | NUR ---
PATIENT ARRIVED ON THE FLOOR ON 12/13/18 AT 2230 HRS. PATIENT IS AOX4 AND WAS ABLE TO MOVE TO BED BY HIMSELF. IVF INFUSING, PATIENT DID NOT REPORT ANY PAIN AT THIS TIME. PATIENT WAS ORIENTED TO THE ROOM AND SIGNED CONSENTS. SHERMAN BROWN WAS NOTIFIED AFTER ADMISSION WAS COMPLETED. ORDERS WERE RECEIVED. PATIENT C-PAP MACHINE IS AT BEDSIDE AND WAS SET UP BY RT FOR USE. PATIENT IS COMFORTABLE AND SLEPT PART OF THE NIGHT. PATIENT IS PROFRESSING TOWARDS DC GOALS.
[2018-12-14 03:00] LABS: ABSOLUTE NEUTROPHILS 3.1 thou/uL (1.4-8.2); BASOPHILS 0.6 % (0.0-2.0); EOSINOPHILS 2.1 % (0.0-3.0); HEMATOCRIT 37.9 % (42.0-52.0); HEMOGLOBIN 13.1 gm/dL (14.0-18.0); LYMPHOCYTES 25.8 % (24.0-44.0); MCH 32.3 pg (26.0-34.0); MCHC 34.5 g/dL (28.0-37.0); MCV 93.6 fL (80.0-100.0); MONOCYTES 10.3 % (1.0-8.0); PLATELET COUNT 165 thou/uL (150-400); POLYS 61.2 % (36.0-66.0); RBC 4.05 mil/uL (4.50-6.00); RDW 13.3 % (10.5-14.5); WBC 5.1 thou/uL (4.0-11.0)
[2018-12-14 03:06] LABS: CALCIUM 9.9 mg/dL (8.5-10.1); CREATININE 1.1 mg/dL (0.7-1.3); POTASSIUM 3.5 mmol/L (3.5-5.1)
[2018-12-14 03:12] LABS: ALBUMIN 3.3 g/dL (3.4-5.0); TOTAL BILIRUBIN 0.5 mg/dL (<0.1-1.0); TOTAL PROTEIN 6.4 g/dL (6.4-8.2)
[2018-12-14 03:14] LABS: APTT 29.7 Seconds (24.5-32.8); PROTIME 10.8 Seconds (9.3-11.4)
[2018-12-14 04:57] VITALS: BP 125/67
[2018-12-14 07:48] VITALS: BP 152/76
--- NOTE | 2018-12-14 12:57 | NUR ---
INITIAL ASSESSMENT: SW reviewed chart and spoke with attending physician. Pt was admitted from home due to back pain. Pt with hx of chronic left sided low back/hip pain. Pt on IV pain medication. SW met with pt at bedside. Introduced role of SW. Pt is alert/orientated x 4. Pt reports he lives at home alone in a one-level apt. Pt's sister lives nearby. Pt states there are no steps to enter and no steps inside the apt. The apt building has an elevator. Pt reports he uses his rollator walker to ambulate. Pt comes to [facility] for outpatient physical therapy on Fri and Fri at [address]. [address] himself. Pt has been to [facility] in the past. Pt has used services. Pt unable to recall name of HH agency. Pt's PCP is Dr. Juan R Hsu. Pt's plan is to return home when medically stable. Awaiting therapy eval at this time. SW is following to assist as needed with discharge planning.
[2018-12-14 14:14] VITALS: BP 148/65
--- NOTE | 2018-12-14 18:20 | NUR ---
PT ALERT AND ORIENTED TIMES FOUR. VSS, 97%RA, IVF INFUSING PER ORDER. PT C/O PAIN ON RIGHT SIDE OF LEG LIDOCAINE PATCH APPLIED. PT TOLERATES MEDS AND MEALS. PT UP TO CHAIR FOR MOST OF THE DAY. PT ALSO WORKED WELL WITH PT/OT TODAY WALKING AROUND THE UNIT.
[2018-12-14 20:01] VITALS: BP 141/74
--- NOTE | 2018-12-15 04:30 | NUR ---
At approx. 1915 pt. was transferred from 4, room 456 to [facility] room 222. Pt. transported in a w/c w/ asst of 1 COPY COORDINATOR. Pt. ambulated from w/c to bed w/ standby asst. only; gait steady. Pt. orientaed to room/call system/[facility], by this process description writer. Pt. denies pain or discomfort, at this time. Will continue to monitor.
--- NOTE | 2018-12-15 04:34 | NUR ---
Assumed pt care at 1915. Pt. remains A&Ox4; swallows meds whole w/o difficulty. Remains cont. B&B; ambulates w/ asst of walker; gait steady. R wrist SL intact and infusing NS at 80mls/hr w/o difficulty. Pt. has no c/o pain or discomfort. No s/s of acute distress noted. Pt/ asleep in bed w/ CPaP intact and call light/desired belongings within reach. Po fluids encouraged. Will continue to monitor.
[2018-12-15 08:38] VITALS: BP 165/92
--- NOTE | 2018-12-15 13:21 | NUR ---
SW reviewed chart and spoke with nursing and attending physician. Pt was transferred to [facility] from [facility] and is progressing towards goals for discharge. Discharge home is anticipated for tomorrow. STEFANIE is following to assist as needed with discharge planning.
[2018-12-15 15:22] VITALS: BP 102/56
[2018-12-15 17:41] VITALS: BP 165/88
--- NOTE | 2018-12-16 04:18 | NUR ---
PT VERY CHATTY, UP WITH ASSIST, GAITBELT AND WALKER AND YELLOW SOCKS, USED CPAP TONIGHT, VOIDING IN THE TOILET, EDEMA BLE, C/O DIFFICULTY SLEEPING DESPITE TAKING THE TRAZODONE, GIVEN BENADRYL, STILL ON SOLUMEDROL IV, LUNGS CLEAR, HOURLY ROUNDING.
[2018-12-16 09:15] VITALS: BP 149/77
--- NOTE | 2018-12-16 10:21 | NUR ---
ASSUMED PATIENT AND CARES AT 0715, PATIENT INITIALLY SLEEP, EASILY AROUSED FOR MED PASS PER OFF-GOING NURSE, PATIENT ABLE TO INDEPENDENTLY REMOVE AND PLACE CPAP MASK, NO REPORTS OF PAIN OR DISCOMFORT, RIGHT WRIST SALINE LOCK INTACT, WALKER NEARBY, PATIENT WENT BACK TO SLEEP AFTER TAKING MEDICATION, PERSONAL BELONGINGS AND CALL LIGHT IN REACH, WILL CONTINUE TO MONITOR
--- NOTE | 2018-12-16 12:45 | NUR ---
I AGREE WITH NURSING ASSESSMENT DONE BY STEVEN/AARTI.
--- NOTE | 2018-12-16 14:13 | NUR ---
STEFANIE reviewed chart and spoke with nursing and attending physician. Pt's nurse states that pt may need rehab. SW met with pt at bedside to discuss discharge plan. Pt requests referral to be sent to [facility] for review. Pt has been there in the past. Pt also needing an outpatient appt at the [facility] pain clinic. Pt's nurse to call to arrange. STEFANIE notified [facility] liaison, who will evaluate pt this afternoon. information systems planner to fax referral to [facility]. STEFANIE is following to assist as needed with discharge planning.
--- NOTE | 2018-12-16 14:18 | NUR ---
DISCHARGE PLANNING. PATIENT IS MEDICALLY READY FOR DISCHARGE. POST ACUTE CARE RECOMMENDED AT DISCHARGE. REFERRAL FAXED TO [facility]. JENNIFER NOTIFIED OF REFERRAL AND PATIENT DISCHARGE NEEDS PER UNIT [facility] TO REVIEW AND CONTACT ONCE COMPLETE. FOLLOWING TO ASSIST WITH PATIENTS DISCHARGE NEEDS.
--- NOTE | 2018-12-16 14:30 | NUR ---
Nutrition: Pt admitted with lumbar pain, left knee radiculopathy. Surgery consult. Seen due to BMI 43.6, extreme class 3 obesity. Intentional 20# loss over the past 6 months due to healthier eating habits. Good appetite overall. Sarcopenia documented. RD reviewed and encouraged adequate protein intake, provided handout. Consider low nutrition risk.
[2018-12-16 20:21] VITALS: BP 152/87
--- NOTE | 2018-12-17 04:51 | NUR ---
ASSUMED CARE OF PATIENT AT 1900. VSS. ASSESSMENT COMPLETED AT 2024 AND IS DOCUMENTED. PT BISHOP PAIUTE AND REQUESTS TO BE SPOKEN TO IN RIGHT EAR. PT UP WITH SBA WITH WALKER; STEADY GAIT. LEFT WRIST IV PATENT AND SALINE LOCKED. PT VOICED CONCERNS ABOUT GOING TO [facility] TOMORROW PRIOR TO TALKING TO DR. COOPER (PAIN MANAGEMENT DOCTOR). STATED "HE DID NOT NEED THE SHOT RIGHT NOW, HE JUST WANTED TO TALK TO DR. COOPER BEFORE HE GOES TO [facility] AND THEY DO PT THAT WILL MAKE HIM HURT WORSE AND NOT HELP HIM." REASSURED PT THAT THIS WAS SOMETHING THAT I WOULD PASS ONTO DAY SHIFT. PRN [facility]CO GIVEN FOR C/O LEFT HIP PAIN WITH DESIRED EFFECT ACHIEVED. PATIENT CURRENTLY SLEEPING SOUNDLY IN BED WITH CPAP ON IN NO ACUTE DISTRESS. BED LOCKED AND IN LOWEST POSITION. CALL LIGHT WITHIN REACH. [facility].
[2018-12-17 08:45] VITALS: BP 166/87
[2018-12-17] MEDS ORDERED: BACLOFEN 10MG T10 MG PO (12:41)
[2018-12-17] MEDS ORDERED: LIDOPATCH1 EACH TRANSDERM (12:41)
[2018-12-17] MEDS ORDERED: PREDNISONE 20 M20 M1 PO (12:41)
--- NOTE | 2018-12-17 12:48 | NUR ---
DISCHARGE NOTE: SW reviewed chart and spoke with nursing and attending physician. Pt is medically stable for discharge home today. Pt's nurse called pain clinic. Pt's pain mgmt physician, Dr. Longo, is not available today. Pt does not want to see another physician in the group. SW met with pt at bedside to discuss discharge plan to [facility] today. Pt states that he would prefer to speak with Dr. Longo, prior to starting therapy. Therefore, pt states he wants to d/c home today. Pt interested in HH services. SW explaind that pt cannot have both HH and outpatient therapy. Pt prefers to continue outpatient therapy, which he will resume on Friday, 12/21. [facility] liaison and met with pt. Pt to contact [facility] liaison if he feels he needs rehab placement from home. Pt states he will try to find transportation home. SW states if he needs transportation, it can be arranged. STEFANIE updated pt's nurse. No additional SW needs identified at this time, but is available to assist should needs arise.
[2018-12-17 14:19] VITALS: BP 166/87
--- NOTE | 2018-12-17 18:21 | NUR ---
ASSUMED PATIENT AND CARES AT 0715, PATIENT WOKE SITTING UP IN CHAIR READING, A&OX4, DENIES PAIN OR DISCOMFORT AT THIS TIME, CPAP ON NIGHTSTAND IN REACH, RIGHT WRIST SALINE LOCK INTACT, RESIGHINI TO LEFT SIDE, FALL PRECAUTIONS IN PLACE, PERSONAL WALKER NEARBY, PERSONAL BELONGINGS AND CALL LIGHT IN REACH, WILL CONTINUE TO MONITOR
--- NOTE | 2018-12-17 18:33 | NUR ---
PATIENT DISCHARGED HOME WITH SELF CARE, NURSE AND PATIENT DISCUSSED DISCHARGED INSTRUCTIONS AND MEDICATIONS, PATIENT SISTER TO TRANSPORT PATIENT HOME, BELONGINGS PACKED AND TAKEN BY PATIENT AND FAMILY, RIGHT WRIST SALINE LOCK REMOVED AND GAUZE AND TAPE PLACED, PRESCRIPTIONS AND DISCHARGE PAPERS SENT WITH PATIENT, TRANSPORT TO TAKE PATIENT TO [facility] PER WHEELCHAIR
== END 2018-12-17 16:01 | disposition home or self-care (01) | DRG 552 ==
LOC: ER 18:09 → EROBS 21:14 → 4W 21:14 → SICU 12-14 19:59 → ENTRNSPT 12-17 15:37 → SICU 12-17 16:01
PROVIDERS: Nurse Practitioner Acute Care; Physician Assistant; ADMIT Internal Medicine
DX: M51.16 Intervertebral disc disorders with radiculopathy, lumbar region (principal); K50.90 Crohn's disease, unspecified, without complications; Z68.41 Body mass index [BMI] 40.0-44.9, adult; M48.061 Spinal stenosis, lumbar region without neurogenic claudication; G40.909 Epilepsy, unspecified, not intractable, without status epilepticus; G47.33 Obstructive sleep apnea (adult) (pediatric); I10 Essential (primary) hypertension; E66.01 Morbid (severe) obesity due to excess calories; Z60.2 Problems related to living alone; M62.84 Sarcopenia; G47.00 Insomnia, unspecified; F41.9 Anxiety disorder, unspecified; F32.9 Major depressive disorder, single episode, unspecified; N43.3 Hydrocele, unspecified; N40.0 Benign prostatic hyperplasia without lower urinary tract symptoms; Z95.0 Presence of cardiac pacemaker; Z87.891 Personal history of nicotine dependence; Z79.1 Long term (current) use of non-steroidal anti-inflammatories (NSAID)
CPT/HCPCS: 10040; 15002

== ENCOUNTER → 2018-12-29 | Outpatient (CLI) | payer OTHER, BC ==
[~2018-12-29] VITALS: Ht 177.8 cm; Wt 140.8 kg
[~2018-12-29] MED LIST changes: +BACLOFEN 10MG T10 MG PO; +LIDOPATCH1 EACH TRANSDERM; +PREDNISONE 20 M20 M1 PO
--- NOTE | ~2018-12-29 | HPC ---
[address] [place] [address] PAIN MANAGEMENT CONSULTATION Name: FRANKLIN MCKEON Room #: REG [facility] Nancy.#: [id number] Admission: 12/29/18 ������������������ Attend Phys: Juan R Longo DO Discharge: ������������������ Date of : 42 Report #: [id number] THIS REPORT FOR: //name// CC: Juan R Hsu DO Juan R AGUILERA DATE OF SERVICE: 12/29/2018 CHIEF COMPLAINT: Low back pain, left buttock and posterolateral thigh pain. HISTORY OF PRESENT ILLNESS: As you know, the patient is a 78-year-old male who returns today in followup visit having undergone a left intraarticular knee injection under fluoroscopic guidance per the request of Dr. Dwayne Aguilera. The patient reports 100% improvement in overall pain lasting for nearly 24 hours without injection. This would indicate to this physician that the main source of the patient's pain is his left hip. He has not contacted Dr. Aguilera since that injection and we have recommended he do so. He has been referred back to our clinic to discuss the possibility of a spinal cord stimulator as a treatment option. He continues to experience some axial back pain, but mainly, left buttock and posterolateral thigh pain that was completely resolved with intraarticular left hip injection from our last visit. Unfortunately, his symptoms have returned. He is now placing pain score at 3/10. Pain is exacerbated with standing, walking and lifting, improves with repositioning and the previous left intraarticular hip injection. ALLERGIES: No known drug allergies. CURRENT MEDICATIONS: Amlodipine, hydrochlorothiazide, tramadol, tamsulosin, hydralazine, lisinopril, meloxicam, gabapentin, trazodone, clonazepam and citalopram. SOCIAL HISTORY: The patient denies tobacco, alcohol, IV or illicit drug use. He is retired, retired years ago. He is accompanied by his sister who is present in room today. PQRS: The patient has known arthritic changes of the lumbar spine, bilateral hips, bilateral knees. No rheumatoid arthritis. He is placing pain intensity today at 3/10. He is a fall risk, but has not had a fall in the last 3 months. He is using a roller walker for stabilization and ambulation. He is not on blood thinners. He is treated for hypertension. He is on chronic opioids. He has a moderate to near severe concern of opioid addiction. He is placing pain impact score at 13/70, moderate interference of daily activities secondary to pain. [address] [address] PAIN MANAGEMENT CONSULTATION Name: FRANKLIN MCKEON Room #: REG [facility]#: [id number] Admission: 12/29/18 ������������������ Attend Phys: Juan R Longo DO Discharge: ������������������ Date of : 41 Report #: [id number] PHYSICAL EXAMINATION: VITAL SIGNS: Blood pressure 160/95, pulse 80, respiratory rate 20 and unlabored. The patient is 97% on room air. Height 5 feet 10 inches tall, weight 310.4 pounds, BMI calculated 44.5. GENERAL: Well-developed, well-nourished, well-hydrated, morbidly obese 78-year-old male appearing stated age, placing current pain score at 3/10. HEENT: Normocephalic, atraumatic. Pupils equal, round, reactive to light. Speech fluent for the patient. Hearing decreased. EXTREMITIES: Show no clubbing, no cyanosis and no edema. MUSCULOSKELETAL: Seated straight leg raising negative. Supine straight leg raising remains mildly positive. Patricia's test is positive on left, negative right. Gait antalgic favoring left lower extremity over right. Muscle bulk and tone appears symmetrical in comparing lower extremities. ASSESSMENT: 1. Left hip pain. 2. Left hip osteoarthritis. 3. History of lumbar radiculopathy. 4. Spinal stenosis of the lumbar spine. 5. Displacement of lumbar intervertebral disk with radiculopathy. 6. Lumbosacral spondylosis with radiculopathy. 7. Lumbar degeneration. 8. Chronic intractable pain. 9. Morbid obesity. PLAN: 1. The patient returns today in followup visit indicating 100% improvement in overall pain with the intra-articular hip injection provided at our last visit per the request of Dr. Montelongo. Unfortunately, his symptoms did return quite quickly, which would indicate that the source of the patient's main pain generator is the left hip. I recommend the patient follow up with Dr. Aguilera for further evaluation and possible surgical consultation. I did advise the patient if new imaging of the hip was necessary that we would be willing to write for imaging studies, though we have requested he contact Dr. Aguilera's office initially to determine what study they would prefer. Given the fact the patient received 100% improvement in overall pain immediately following our injection, this would indicate the hip joint is the main source of the patient's symptoms and needs to be addressed before lumbar radicular symptoms are considered. 2. The patient has plans to follow up with Dr. Heraclio Soto and his team at [facility]. I have advised the patient to collect all imaging studies and digital form to be taken to their office for that meeting. 3. I did provide the patient with information about spinal cord stimulator today, though given the findings on physical exam and his improvement in symptoms with an intraarticular hip injection, a spinal cord stimulator would not provide benefit in his case. I did give him information and digital form [facility] [address] [place] [address] PAIN MANAGEMENT CONSULTATION Name: FRANKLIN MCKEON Room #: REG [facility] Mock#: [id number] Admission: 12/29/18 ������������������ Attend Phys: Juan R Longo DO Discharge: ������������������ Date of : 41 Report #: [id number] today to review, though again, this would not be beneficial given the response he had to the left intra-articular hip injection. 4. No medication changes made at today's visit. The patient will continue current medical therapy as previously prescribed. 5. We will see the patient back in followup visit on an as needed basis. Again, we will be available to provide requested imaging of the left hip if necessary before the patient returns to see his orthopedic surgeon. ��������������������������������������������� ���������������������������������������� By: ��������������������������������������������� 0931 0057 Juan R Longo DO /jesús
[2018-12-29 08:11] VITALS: BP 160/95
--- NOTE | 2018-12-29 08:24 | NUR ---
Pain Clinic Assessment: 1. History of Osteoarthritis: Not Applicable History of Rheumatoid Arthritis: Not Applicable 2. Height: 5 ft. 10 in. 177.8 cm. Weight: 310.4 lb. oz. 140.797 kg. Patient's BMI: 44.5 3. Vital Signs: BP: 160/95 Pulse: 80 Resp: 20 Temp: 02 Sat: 97 ECG Mon: 4. Pain Intensity: 3 5. Fall Risk: Dizziness: N Needs help standing or walking: Y Fallen in the last 3 months: N Fall risk comments: 6. Patient on Blood Thinner: None 7. History of Hypertension: Y 8. Opioid Therapy greater than 6 weeks: Y Opiate Contract Signed: 9. Risk Assessment Tool Provided: 6-mod 10. Functional Assessment Tool: 11. Recreational Drug Use: Never Drug Type: Tobacco Use: Former Smoker Tobacco Type: Amount or Packs/day: How Many Years: Alcohol Use: Past use Frequency: Quant:
== END ==
LOC: PAIN 06:51
DX: M51.16 Intervertebral disc disorders with radiculopathy, lumbar region (principal); E66.8 Other obesity; G89.29 Other chronic pain; M47.27 Other spondylosis with radiculopathy, lumbosacral region; M16.12 Unilateral primary osteoarthritis, left hip; M48.061 Spinal stenosis, lumbar region without neurogenic claudication; Z79.899 Other long term (current) drug therapy; Z79.891 Long term (current) use of opiate analgesic

== ENCOUNTER → 2018-12-30 | Outpatient (CLI) | payer OTHER, BC | LOC: RAD 15:16 | DX: R06.02 Shortness of breath (principal); Z88.1 Allergy status to other antibiotic agents; Z95.0 Presence of cardiac pacemaker ==

== ENCOUNTER → 2019-03-02 | Outpatient (CLI) | payer OTHER, BC ==
[~2019-03-02] VITALS: Ht 177.8 cm; Wt 137.0 kg
[~2019-03-02] MED LIST changes: +LIORESAL 10 MG10 MG PO
[2019-03-02 10:58] VITALS: BP 139/96
--- NOTE | 2019-03-02 11:12 | NUR ---
Pain Clinic Assessment: 1. History of Osteoarthritis: Not Applicable History of Rheumatoid Arthritis: Not Applicable 2. Height: 5 ft. 10 in. 177.8 cm. Weight: 302.0 lb. oz. 136.987 kg. Patient's BMI: 43.3 3. Vital Signs: BP: 139/96 Pulse: 80 Resp: 20 Temp: 02 Sat: 97 ECG Mon: 4. Pain Intensity: 7-8 5. Fall Risk: Dizziness: N Needs help standing or walking: Y Fallen in the last 3 months: N Fall risk comments: 6. Patient on Blood Thinner: None 7. History of Hypertension: Y 8. Opioid Therapy greater than 6 weeks: Y Opiate Contract Signed: 9. Risk Assessment Tool Provided: 6-mod 10. Functional Assessment Tool: 11. Recreational Drug Use: Never Drug Type: Tobacco Use: Former Smoker Tobacco Type: Amount or Packs/day: How Many Years: Alcohol Use: Past use Frequency: Quant:
--- NOTE | 2019-03-09 13:04 | HPC ---
[facility] [place] [address] PAIN MANAGEMENT CONSULTATION Name: MIKEFRANKLIN CERVANTES Room #: REG [facility] Nancy.#: [id number] Admission: 03/02/19 ������������������ Attend Phys: Juan R Longo DO Discharge: ������������������ Date of : 42 Report #: [id number] THIS REPORT FOR: //name// CC: Juan R Garcia DATE OF SERVICE: 03/02/2019 CHIEF COMPLAINT: Low back pain, left buttock and posterolateral thigh pain, left hip pain. HISTORY OF PRESENT ILLNESS: As you know, the patient is a 78-year-old male who returns today in followup visit, describing improvement in pain since his surgery, 01/29/2019. He underwent a laminectomy at the L4-L5 level with improvement in symptoms. He continues to experience what he is describing as left hip pain. He is concerned that he may ultimately need to undergo total hip arthroplasty on the left. He does not have any imaging available. He returns to discuss options for treatment if his symptoms do not improve with the laminectomy performed on the which has already begun to improve his left lower extremity symptoms. He is reporting pain today around 7-04/17. ALLERGIES: No known drug allergies. CURRENT MEDICATIONS: Amlodipine, hydrochlorothiazide, tramadol, tamsulosin, hydralazine, lisinopril, meloxicam, gabapentin, trazodone, clonazepam, and citalopram. SOCIAL HISTORY: The patient denies tobacco, alcohol, IV or illicit drug use. He is retired, retired years ago. He is accompanied by his sister, present in room today. PQRS: The patient has arthritic change of the lumbar spine, bilateral hips and bilateral knees. No rheumatoid arthritis. He is placing pain intensity of 7-8/10. He is a fall risk, but has not had a fall in the last 3 months. He does utilize a roller walker. He is not on blood thinners. He is treated for hypertension. He is on chronic opioids and has a moderate to high risk of opioid addiction potential. He is placing pain impact score 13/70, indicating mild interference of daily activities secondary to pain. PHYSICAL EXAMINATION: VITAL SIGNS: Blood pressure 139/96, pulse 80, respiratory rate 20 and unlabored. The patient is 97% on room air. Height 5 feet 10 inches tall, weight 302 pounds, BMI calculated 43.3. GENERAL: Well-developed, well-nourished, well-hydrated, class 3, morbidly obese 78-year-old male appearing stated age, pain is rated anywhere from 7-8/10. [address] [address] PAIN MANAGEMENT CONSULTATION Name: FRAKNLIN MCKEON Room #: REG CL M.Sharda.#: [id number] Admission: 03/02/19 ������������������ Attend Phys: Juan R Longo DO Discharge: ������������������ Date of : 41 Report #: [id number] HEENT: Normocephalic, atraumatic. Pupils equal, round, reactive to light. Extraocular muscles are intact. EXTREMITIES: Show no clubbing, no cyanosis, and no edema. MUSCULOSKELETAL: Seated straight leg raising negative. Supine straight leg raising negative. Patricia's test is positive on the left. Modified Gaenslen's positive for axial low back pain. Ankle clonus negative. Babinski is negative. There is well-healed surgical scar over the lumbar spine, status post laminectomy. ASSESSMENT: 1. Left hip pain. 2. Left hip osteoarthritis. 3. Lumbar radiculopathy. 4. Spinal stenosis of lumbar spine. 5. Displacement of lumbar intervertebral disk with radiculopathy. 6. Lumbosacral spondylosis with radiculopathy. 7. Lumbar degeneration. 8. Chronic intractable pain. 9. Morbid obesity. PLAN: 1. The patient returns today in followup visit, where we have discussed at length the improvement he has already noted with the laminectomy at the L4-L5 level. He is pleased with response to surgery and continues to heal from this issue. His low back symptoms have not completely resolved. He is continuing to experience left buttock and left hip pain for which he wishes to discuss further imaging studies. He has been able to start ambulating and he is in physical therapy for his lumbar spine. He indicates that this may have exacerbated his left hip pain as well. 2. We will take x-ray imaging of the left hip. He can contact our clinic in the next day for the findings. If findings are such that it is imperative that the patient be seen by Orthopedics, we will advise the patient of such. I expect to see some arthritic changes, but I am not confident we will see significant arthritic changes. Based on the physical exam, it appears to be fairly moderate. We will review the x-ray imaging once it is available. The patient can call in for the results. 3. We made no changes in the patient's medication management. Recommend the patient to continue current medical therapy. 4. We will see the patient back in followup visit on an as-needed basis. If further treatment is necessary for the left hip, we will have the patient return to discuss that further as well including possible intra-articular left hip [address] [address] PAIN MANAGEMENT CONSULTATION Name: FRANKLIN MCKEON JR Room #: REG [facility].#: [id number] Admission: 03/02/19 ������������������ Attend Phys: Juan R Longo DO Discharge: ������������������ Date of : 42 Report #: [id number] injection. At this point, we wish to see how the patient responds to the recent surgery and determine if further treatment will be necessary. ��������������������������������������������� <ELECTRONICALLY SIGNED> ���������������������������������������� By: Juan R Longo DO ��������������������������������������������� 03/09/19 1304 [id number] [id number] Juan R Longo DO /nt
== END ==
LOC: PAIN 06:46
DX: M51.17 Intervertebral disc disorders with radiculopathy, lumbosacral region (principal); M47.27 Other spondylosis with radiculopathy, lumbosacral region; M48.061 Spinal stenosis, lumbar region without neurogenic claudication; M16.12 Unilateral primary osteoarthritis, left hip; E66.01 Morbid (severe) obesity due to excess calories; Z68.41 Body mass index [BMI] 40.0-44.9, adult; Z79.899 Other long term (current) drug therapy

== ENCOUNTER → 2019-06-22 | Outpatient (CLI) | payer OTHER, BC ==
[~2019-06-22] VITALS: Ht 177.8 cm; Wt 135.2 kg
[~2019-06-22] MED LIST changes: +OXYCODONE-ACET1 EACH PO; +PROTONIX40 M2 PO
[2019-06-22 14:35] VITALS: BP 150/69
--- NOTE | 2019-06-22 14:48 | NUR ---
Pain Clinic Assessment: 1. History of Osteoarthritis: Not Applicable History of Rheumatoid Arthritis: Not Applicable 2. Height: 5 ft. 10 in. 177.8 cm. Weight: 298.0 lb. oz. 135.172 kg. Patient's BMI: 42.8 3. Vital Signs: BP: 150/69 Pulse: 80 Resp: 22 Temp: 02 Sat: 97 ECG Mon: 4. Pain Intensity: 9 5. Fall Risk: Dizziness: N Needs help standing or walking: Y Fallen in the last 3 months: N Fall risk comments: 6. Patient on Blood Thinner: None 7. History of Hypertension: Y 8. Opioid Therapy greater than 6 weeks: Y Opiate Contract Signed: 9. Risk Assessment Tool Provided: 6-mod 10. Functional Assessment Tool: 11. Recreational Drug Use: Never Drug Type: Tobacco Use: Former Smoker Tobacco Type: Amount or Packs/day: How Many Years: Alcohol Use: Past use Frequency: Quant:
--- NOTE | 2019-06-29 07:57 | HPC ---
[facility] [place] [address] PAIN MANAGEMENT CONSULTATION Name: FRANKLIN MCKEON [facility] [id number] Admission: 06/22/19 Attend Phys: Juan R Longo DO Discharge: Date of : 41 Report #: [id number] THIS REPORT FOR: //name// CC: Juan R Garcia DATE OF SERVICE: 06/22/2019 REFERRING PHYSICIAN: Juan R Hsu DO CHIEF COMPLAINT: Left buttock pain, left anterior thigh pain and left groin pain. HISTORY OF PRESENT ILLNESS: As you know, the patient is a 78-year-old male who returns today in followup visit with continued left buttock, anterior thigh pain and left groin pain. We last saw the patient on 03/02/2019, where we sent him for x-ray imaging of the left hip. Findings were such, the patient showed [id number] left hip joint space loss and arthritic changes. He returns today in followup visit, describing pain that would correlate to left hip pathology. Apparently, the patient has seen Orthopedics, but was advised that he is not an optimal candidate for total hip arthroplasty and that it was believed that his symptoms may be related to his low back. He returns today in followup visit, placing pain directly over this left hip joint. Pain is elicited with standing, walking and weightbearing, improves with sitting in a chair or lying down. He places his pain today at 9/10, daily average at 9/10, worst pain has been is 10/10. The patient denies any specific injury or trauma that may have led to symptom occurrence. ALLERGIES: No known drug allergies. CURRENT MEDICATIONS: Amlodipine, hydrochlorothiazide, tramadol, tamsulosin, hydralazine, lisinopril, meloxicam, gabapentin, trazodone, clonazepam and citalopram. SOCIAL HISTORY: The patient denies tobacco, alcohol, IV or illicit drug use. He is retired, retired years ago. He is accompanied by his sister present in room today. PQRS: The patient has arthritic changes of the lumbar spine, bilateral hips and bilateral knees, no rheumatoid arthritis. He is placing pain intensity today at around 9/10. He is a fall risk, but has not had a fall in last 3 months. He does use a roller walker to ambulate. He is not on blood thinners, but is treated for hypertension. He is on chronic opioids and has a ooqquiwk-ej-vmid risk for opioid addiction. He is placing pain impact score at 13/70, mild interference of daily activities secondary to pain. [address] [address] PAIN MANAGEMENT CONSULTATION Name: MIKEFRANKLIN JIMMY Room #: [facility] [id number] Admission: 06/22/19 Attend Phys: Juan R Longo DO Discharge: Date of : 41 Report #: [id number] PHYSICAL EXAMINATION: VITAL SIGNS: Blood pressure 150/69, pulse is 80, respiratory rate 22 and unlabored. The patient is 97% on room air. Height 5 feet 10 inches tall, weight 298 pounds, BMI calculated 42.8. GENERAL: Well-developed, well-nourished, well-hydrated, class 3, morbidly obese 78-year-old male. He appears his stated age, pain is rated around 8/10. HEENT: Normocephalic, atraumatic. Pupils equal, round, reactive to light. Speech is fluent for patient. The patient does have significant hearing deficits. EXTREMITIES: Show no clubbing, no cyanosis, no edema. MUSCULOSKELETAL: Seated straight leg raising negative. Supine straight leg raising negative. JENNIFER'S test is positive on the left. Modified Gaenslen's positive for some axial low back pain. Gait is antalgic favoring left lower extremity with weightbearing as well as ambulation. ASSESSMENT: 1. Left hip pain. 2. Left hip osteoarthritis. 3. History of lumbar radiculopathy secondary to spinal stenosis. 4. Chronic intractable pain. 5. Morbid obesity. PLAN: 1. The patient has returned today in followup visit, describing pain generated from the left hip. He describes pain in the buttock, anterior thigh and groin, exacerbated with standing and walking, improves with sitting and lying down. We reviewed the patient's x-ray imaging that we obtained from February, which shows moderate to severe joint space narrowing and significant arthritic changes. It does appear, based on the patient's history and the description he uses in regards to pain along with the provocating activities, that this would be related to his left hip. The patient apparently saw an orthopedic surgeon who considered the possibility that his symptoms may be related to the hip, but had not offered a surgical solution. The patient indicates that he did not get along well with this surgeon. We discussed with the patient that treatment options for left hip pain would include the following: We discussed physical therapy, stretching exercises and a concerted effort at weight loss. We discussed medication management utilizing nonsteroidal anti-inflammatories and continuation of his current medications. We discussed intra-articular hip injection to determine if his symptoms will be amenable to this type of treatment course and then possibly a total hip arthroplasty. The patient is amenable to all suggestions, but wishes to undergo a left intra-articular hip injection at today's visit. 2. The patient was advised risks and benefits of a left intra-articular hip injection. These risks include but are not necessarily limited to bleeding, [facility] [address] [place] [address] PAIN MANAGEMENT CONSULTATION Name: FRANKLIN MCKEON Room #: REG [facility] Nancy.#: [id number] Admission: 06/22/19 Attend Phys: Juan R Longo DO Discharge: Date of : 41 Report #: [id number] bruising, infection, worsening pain, no relief of pain, also risk of temporary or permanent muscle weakness, temporary or permanent nerve damage, possible paralysis, joint destruction or . The patient he states understood and wished to proceed. 3. No medication changes made at today's visit. The patient will continue current medical therapy as previously prescribed. 4. We will see the patient back in followup visit on an as needed basis for the next in a series of left hip injections. It is noted the patient's pain with ambulation is rated at 8-9/10 today. Upon discharge from our clinic, his pain was 0/10 with no pain with ambulation and weightbearing. PROCEDURE NOTE DESCRIPTION OF PROCEDURE: Left intraarticular hip injection under fluoroscopic guidance. After obtaining written consent, the patient was taken back to fluoroscopy suite, placed in a supine position. Image intensifier was then brought into position over the right hip and x-ray imaging was obtained. The area overlying the site of injection was then prepped and draped in aseptic fashion using chlorhexidine marked with a sterile marker. A 27-gauge 1-1/4 inch needle was then used to anesthetize skin and subcutaneous tissue with 2 mL of 1% lidocaine. A 22-gauge, 6-inch Chiba needle was then advanced under fluoroscopic guidance towards the proximal head of the femur. Under fluoroscopic guidance, needle was advanced until reaching the femoral head. Needle was then retracted approximately 1 mm and aspiration noted to be negative for heme. After negative aspiration for heme, 0.5 mL of Omnipaque injected demonstrating excellent left hip arthrogram. After negative aspiration for heme, 4 mL of a solution containing 1 mL, 40 mg per mL, 40 mg total triamcinolone along with 3 mL of bupivacaine 0.5% injected slowly. Needle then retracted approximately half way, flushed with 1 mL of 1% lidocaine and then removed. Sterile bandage placed over injection site. There were no new motor deficits present in the lower extremities following procedure. The patient tolerated the procedure well, carefully escorted to recovery room in stable condition. No apparent complications. After meeting discharge criteria, the patient discharged home. <ELECTRONICALLY SIGNED> By: Juan R Longo DO 06/29/19 [id number] Juan R Longo DO /nt
== END | disposition home or self-care (01) ==
LOC: PAIN 06:58
DX: M25.552 Pain in left hip (principal); M16.12 Unilateral primary osteoarthritis, left hip; G89.29 Other chronic pain; E66.01 Morbid (severe) obesity due to excess calories; I10 Essential (primary) hypertension; N40.0 Benign prostatic hyperplasia without lower urinary tract symptoms; M19.90 Unspecified osteoarthritis, unspecified site; Z68.41 Body mass index [BMI] 40.0-44.9, adult; Z98.890 Other specified postprocedural states; Z79.899 Other long term (current) drug therapy; Z79.891 Long term (current) use of opiate analgesic

== ENCOUNTER → 2019-07-06 | Outpatient (CLI) | payer OTHER, BC | LOC: RAD 14:38 | DX: J98.11 Atelectasis (principal) ==

== ENCOUNTER 2019-08-05 20:58 | Emergency (ER) | payer OTHER, BC ==
[~2019-08-05] VITALS: Ht 177.8 cm; Wt 136.1 kg
[2019-08-05 20:59] VITALS: BP 147/104
== END 2019-08-05 22:25 | disposition home or self-care (01) ==
LOC: ER 20:58
DX: M25.552 Pain in left hip (principal); G40.909 Epilepsy, unspecified, not intractable, without status epilepticus; I10 Essential (primary) hypertension; G47.33 Obstructive sleep apnea (adult) (pediatric); E66.01 Morbid (severe) obesity due to excess calories; Z87.891 Personal history of nicotine dependence; Z79.899 Other long term (current) drug therapy; Z95.0 Presence of cardiac pacemaker

== ENCOUNTER → 2019-09-28 | Outpatient (CLI) | payer OTHER, BC ==
[~2019-09-28] VITALS: Ht 177.8 cm; Wt 118.0 kg
[2019-09-28 09:50] VITALS: BP 127/73
--- NOTE | 2019-09-28 10:00 | NUR ---
Pain Clinic Assessment: 1. History of Osteoarthritis: Not Applicable History of Rheumatoid Arthritis: Not Applicable 2. Height: 5 ft. 10 in. 177.8 cm. Weight: 260.2 lb. oz. 118.026 kg. Patient's BMI: 37.3 3. Vital Signs: BP: 127/73 Pulse: 84 Resp: 20 Temp: 02 Sat: 98 ECG Mon: 4. Pain Intensity: 8 5. Fall Risk: Dizziness: N Needs help standing or walking: N Fallen in the last 3 months: N Fall risk comments: 6. Patient on Blood Thinner: None 7. History of Hypertension: Y 8. Opioid Therapy greater than 6 weeks: Y Opiate Contract Signed: 9. Risk Assessment Tool Provided: 6-mod 10. Functional Assessment Tool: 11. Recreational Drug Use: Never Drug Type: Tobacco Use: Former Smoker Tobacco Type: Amount or Packs/day: How Many Years: Alcohol Use: Past use Frequency: Quant:
--- NOTE | 2019-09-29 11:48 | HPC ---
[facility] [address] [place] [address] PAIN MANAGEMENT CONSULTATION Name: FRANKLIN MCKEON Room #: REG [facility]..#: [id number] Admission: 09/28/19 Attend Phys: Juan R Longo DO Discharge: Date of : 41 Report #: [id number] THIS REPORT FOR: //name// CC: Juan R Garcia DATE OF SERVICE: 09/28/2019 REFERRING PHYSICIAN: Juan R Hsu DO CHIEF COMPLAINT: Left hip pain. HISTORY OF PRESENT ILLNESS: As you know, the patient is morbidly obese, 79-year-old male, returning in followup visit requesting to undergo next in the series of left intra-articular hip injections under fluoroscopic guidance. The patient reports previous left intra-articular hip injection gave excellent improvement in symptoms, reporting up to 80% improvement in overall pain. He has sought evaluation through Orthopedics, who has advised the patient that if he loses 60 pounds, they would be willing to have the patient undergo total hip arthroplasty. He has completed a 50-pound weight loss, but continues to experience left hip pain that recurred recently. He returns to undergo left intraarticular hip injection in hopes of improving pain. He denies any new injury or trauma. He is placing pain today at around 7/10. ALLERGIES: No known drug allergies. CURRENT MEDICATIONS: See chart. SOCIAL HISTORY: The patient denies tobacco, alcohol, IV or illicit drug use. He is retired, retired years ago, accompanied by his [id number]-rn-nco present in room today. PQRS: The patient has known arthritic changes of the lumbar spine, bilateral hips, bilateral knees, no rheumatoid arthritis. He is placing pain intensity up to 6-7/10. He is a fall risk, but has not had a fall in last 3 months. He does utilize a roller walker for ambulation. He is not on blood thinners, but is treated for hypertension. He is on chronic opioids with a moderate to high risk of addiction potential. This is based on our assessment tool. He is placing pain impact score at 29/70 indicating moderate interference of daily activities secondary to pain. PHYSICAL EXAMINATION: GENERAL: Well-developed, well-nourished, well-hydrated, class 3, morbidly obese 79-year-old male appearing stated age, pain is rated up to 6/10. HEENT: Normocephalic, atraumatic. Pupils equal, round, reactive to light. [facility] [address] [place] [address] PAIN MANAGEMENT CONSULTATION Name: FRANKLIN MCKEON JR Room #: REG [facility]#: [id number] Admission: 09/28/19 Attend Phys: Juan R Longo DO Discharge: Date of : 41 Report #: [id number] Speech is fluent for patient. EXTREMITIES: Show no clubbing, no cyanosis, and no edema. MUSCULOSKELETAL: Seated straight leg raising negative. Supine straight leg raising negative. Patricia's test positive on the left. Modified Gaenslen's positive for some axial low back pain. ASSESSMENT: 1. Left hip pain. 2. Severe left hip osteoarthritis. 3. Chronic lumbar radiculopathy. 4. Spinal stenosis of lumbar spine. 5. Displacement of lumbar intervertebral disk with radiculopathy. 6. Lumbosacral spondylosis with radiculopathy. 7. Lumbar degeneration. 8. Morbid obesity. 9. Chronic intractable pain. PLAN: 1. The patient returns today in followup visit to undergo intraarticular hip injection under fluoroscopic guidance. He reports good efficacy with previous left hip injection, returning today in followup visit to undergo next in the series. The patient has been advised risks and benefits of the procedure, states understood and wished to proceed. 2. No medication changes made at today's visit. The patient will continue current medical therapy as prior prescribed. 3. The patient indicates that he will be following up with his orthopedic surgeon as he has now lost 50 of the 60 pounds required to look towards surgical options. He is going to return to begin scheduling process of a total left hip arthroplasty. He will keep us apprised of the timing of the surgery. DESCRIPTION OF PROCEDURE: Left intraarticular hip injection under fluoroscopic guidance. After obtaining written consent, the patient was taken back to fluoroscopy suite, placed in a supine position. Image intensifier was then brought into position over the left hip and AP imaging was obtained. The area overlying the left hip was then prepped and draped in aseptic fashion using chlorhexidine. A sterile marker was placed to indicate the site of the injection. The area was then anesthetized with 3 mL of 1% lidocaine utilizing a 27-gauge 1-1/4 inch needle. A 22-gauge 4-1/2 inch spinal needle was advanced under fluoroscopic guidance towards the proximal head of the femur. Needle was advanced until reaching the osseous structure then retracted approximately 1 mm. After negative aspiration for heme, 1 mL of Omnipaque injected demonstrating excellent left hip arthrogram. After negative aspiration for heme, 4 mL of a solution containing [address] [address] PAIN MANAGEMENT CONSULTATION Name: FRANKLIN MCKEON JR Room #: REG [facility] Mock#: [id number] Admission: 09/28/19 Attend Phys: Juan R Longo DO Discharge: Date of : 42 Report #: [id number] mL 40 mg per mL, 80 mg total triamcinolone along with 2 mL of bupivacaine 0.5% injected slowly. Needle retracted fci, flushed with 1 mL of 1% lidocaine then removed. Sterile bandage placed over injection site. There were no new motor deficits present in the lower extremities following procedure. The patient tolerated procedure well, carefully escorted to recovery room in stable condition. No apparent complications. After meeting discharge criteria, the patient discharged home. <ELECTRONICALLY SIGNED> By: Juan R Longo DO 09/29/19 1148 1323 07 Juan R Longo DO /nt
== END | disposition home or self-care (01) ==
LOC: PAIN 06:48
DX: M25.552 Pain in left hip (principal); M16.12 Unilateral primary osteoarthritis, left hip; G89.29 Other chronic pain; M48.061 Spinal stenosis, lumbar region without neurogenic claudication; M51.16 Intervertebral disc disorders with radiculopathy, lumbar region; M47.27 Other spondylosis with radiculopathy, lumbosacral region; I10 Essential (primary) hypertension; N40.0 Benign prostatic hyperplasia without lower urinary tract symptoms; M19.90 Unspecified osteoarthritis, unspecified site; E66.01 Morbid (severe) obesity due to excess calories; Z79.891 Long term (current) use of opiate analgesic; Z87.891 Personal history of nicotine dependence; Z79.899 Other long term (current) drug therapy; Z98.890 Other specified postprocedural states

== ENCOUNTER → 2020-01-19 | Outpatient (CLI) | payer OTHER, BC | LOC: SJCVC 11:21 | DX: R94.31 Abnormal electrocardiogram [ECG] [EKG] (principal); I48.0 Paroxysmal atrial fibrillation; I10 Essential (primary) hypertension; E78.5 Hyperlipidemia, unspecified; G47.33 Obstructive sleep apnea (adult) (pediatric); Z95.0 Presence of cardiac pacemaker ==

== ENCOUNTER 2020-01-27 16:09 | Inpatient (IN) | payer OTHER, BC ==
[~2020-01-27] VITALS: Ht 177.8 cm; Wt 117.9 kg
[2020-01-27 16:10] VITALS: BP 139/94
[2020-01-27 17:15] LABS: ABSOLUTE NEUTROPHILS 9.9 thou/uL (1.4-8.2); BASOPHILS 0.2 % (0.0-2.0); HEMATOCRIT 44.7 % (42.0-52.0); HEMOGLOBIN 15.3 gm/dL (14.0-18.0); LYMPHOCYTES 3.8 % (24.0-44.0); MCHC 34.2 g/dL (28.0-37.0); MCV 96.5 fL (80.0-100.0); MONOCYTES 3.7 % (1.0-8.0); PLATELET COUNT 153 thou/uL (150-400); POLYS 92.3 % (36.0-66.0); RBC 4.63 mil/uL (4.50-6.00); RDW 14.2 % (10.5-14.5); WBC 10.7 thou/uL (4.0-11.0)
[2020-01-27 17:22] LABS: ANION GAP 12 mmol/L (7-16); BUN 12 mg/dL (7-18); CALCIUM 10.1 mg/dL (8.5-10.1); CHLORIDE 103 mmol/L (98-107); CO2 26 mmol/L (21-32); CREATININE 1.1 mg/dL (0.7-1.3); GLUCOSE 119 mg/dL (74-106); POTASSIUM 3.6 mmol/L (3.5-5.1); SODIUM 141 mmol/L (136-145)
[2020-01-27 17:28] LABS: APTT 35.3 Seconds (24.5-32.8); INR 1.2; PROTIME 12.4 Seconds (9.3-11.4)
[2020-01-27 17:30] LABS: TROPONIN-I <0.06 ng/mL (<0.06)
[2020-01-27 18:38] VITALS: BP 173/89
[2020-01-27 18:58] LABS: URINE BILIRUBIN NEGATIVE (Negative); URINE BLOOD 1+ (Negative); URINE CLARITY CLEAR; URINE COLOR YELLOW; URINE GLUCOSE-RANDOM* NEGATIVE (Negative); URINE KETONES 1+ (Negative); URINE LEUKOCYTES-REFLEX NEGATIVE (Negative); URINE NITRITE-REFLEX NEGATIVE (Negative); URINE PROTEIN (DIPSTICK) NEGATIVE (Negative); URINE SPECIFIC GRAVITY 1.015 (1.005-1.035)
[2020-01-27 19:02] VITALS: BP 130/91
[2020-01-27 19:02] LABS: BACTERIA-REFLEX None Seen /HPF (None Seen); CRYSTALS None Seen /LPF (None Seen); SQUAMOUS None Seen /LPF (0-3); URINE RBC 0-2 Rare /HPF (0-2); URINE WBC-REFLEX None Seen /HPF (0-5)
[2020-01-27 19:50] VITALS: BP 139/87
[2020-01-28] MEDS ORDERED: ELIQUIS2.5 MG PO ×2 (02:04→04:31)
[2020-01-28 04:00] VITALS: BP 149/99
[2020-01-28 04:16] VITALS: BP 138/80; BP 143/104
--- NOTE | 2020-01-28 06:16 | NUR ---
ASSESMENT: PT REMAIN ALERT AND ORIENT TIMES TWO - THREE. ARRIVED ON THE UNIT AT APPROXIMATELY 1930 FROM ED, ACCOMPANIED BY STAFF. PT C/O LEFT SHOULDER PAIN R/T A FALL THAT OCCURRED EARLIER IN THE DAY. YOKASTA INSERTED BY PT'S REQUEST. STATING THAT HE WANTS TO GET SOME REST AND THAT HE WAS TIRED OF URINATING ALL NIGHT. LOW GRADE TEMP, MAX TEMP BEING 99.8 ORALLY. ORTHO STATIC BP/HR TAKEN ONE TIME. PT HAD A DIFFICULT TIME, SITTING ON THE SIDE OF THE BED AND EVEN MORE DIFFICULTY TO STAND. PT IS VERY GUARDING OF LEFT SHOULDER. CPAP INITATED, TOLERATED FOR 3 HRS ONLY. AFIB, PVC'S AND OCCASSIONALLY V-PACED PER MONITOR. PT HAS SOME SKIN TEARS, BRUISING AND SCARS POST FALL AT HOME. SLOW PROGRESS, WILL CONTINUE TO MONITOR.
[2020-01-28 06:59] LABS: CALCIUM 8.8 mg/dL (8.5-10.1); CREATININE 0.9 mg/dL (0.7-1.3); POTASSIUM 3.1 mmol/L (3.5-5.1); TROPONIN-I 0.06 ng/mL (<0.06)
[2020-01-28 07:10] VITALS: BP 153/94
--- NOTE | 2020-01-28 09:06 | EKG ---
[facility] [place] [address] [place] [address] ELECTROCARDIOGRAM REPORT Name: FRANKLIN MCKEON Room #: 459-P ADM IN M.R.#: [id number] Admission: 01/27/20 Attend Phys: Bradley Bobby MD Discharge: Date of : 42 Report #: [id number] THIS REPORT FOR: cc: Juan R Hsu James A. DO Lundgren, Craig H. MD [facility] ~ THIS REPORT FOR: //name// [facility] ED Test Date: 2020-01-27 Test Time: 16:44:42 Pat Name: FRANKLIN MCKEON Department: Room: Gender: M [employer] Inspector: [facility] : 1940 Requested By: Yohannes De Luna Order Number: [id number] MD: Rc Dawson Measurements Intervals Jerome Rate: 104 P: TN: QRS: 46 QRSD: 107 T: -66 QT: 371 QTc: 488 Interpretive Statements Atrial fibrillation With occasional ventricular pacing Nonspecific ST and T wave abnormality Compared to ECG 04/01/2003 08:23:46 Pacing is now present Atrial fibrillation has replaced sinus rhythm Electronically Signed On 01-28-2020 9:04:08 CDT by Rc Dawson [email or web address] <ELECTRONICALLY SIGNED> By: Rc Dawson MD, [facility] 01/28/20 0904 1644 1644 Rc Dawson MD, FAC /EPI
[2020-01-28 15:16] VITALS: BP 149/68
--- NOTE | 2020-01-28 16:19 | NUR ---
PT ADMITTED RELATED TO L SHOULDER INJURY S/P FALL. CM REVIEWED CHART AND SPOKE WITH CARE TEAM. CM CALLED AND SPOKE WITH PT AT BEDSIDE THIS DAY. PT INDICATED HE LIVES ALONE IN THE [facility] WITH ELEVATOR ACCESS. PT INDICATED HE HAD BEEN INDEPENDENT WITH ADLS BUT USED A 4WW TO ASSIST WITH MOBLITY. PT INDICATED HE HAD HH IN THE PAST AND HAD GONE TO [facility]. PT INDICATED HE IS INTERESTED IN BEING ASSESSED FOR 5N. CARE TEAM INDICATED NO WEEKEND DC. CM TO FOLLOW INDICATED WITH DC PLANNING.
[2020-01-28 19:15] VITALS: BP 182/100
--- NOTE | 2020-01-28 19:58 | NUR ---
Assumed pt care this am, hard of hearing on the left ear. Pt is very anxious and cannot coordinate his movements and is a max of 2. CIPAP was brought in form home.FC intact draining blood tinged urine. Consult called out for ortho, incontinent of bowel as well. Pain is noted when there is movement or touched on his left side, managed with medications. MRI form sent but was cancelled by . POC followed, endorsed to the night nurse.
--- NOTE | 2020-01-28 20:59 | NUR ---
PT C/O SOB, LUNGS SOUNDS CRACKLES NOTED THROUGHOUT ALL LUNG MORFIN. O2 SATS WNL ON ROOM AIR BP 182/100. 1+ EDEMA NOTED TO BILATERAL FEET AND ANKLES. PT GETTING RT TX'S. ISP INITIATED PT USING INDEPENDENTLY UP TO 1000 ML'S. MESSAGE SENT TO [facility] [employer] [facility] AWAITING ORDERS. RT NOTIFIED TO PLACE CPAP AT HS.
[2020-01-29 03:30] VITALS: BP 174/90
[2020-01-29 05:34] LABS: CALCIUM 9.5 mg/dL (8.5-10.1); CREATININE 0.9 mg/dL (0.7-1.3); POTASSIUM 3.3 mmol/L (3.5-5.1)
[2020-01-29 07:45] VITALS: BP 181/103
--- NOTE | 2020-01-29 07:55 | NUR ---
PROGRESS PT A/O X 3 TO 4 BUT VERY ANXIOUS AND NERVOUS EXPLAINED PLAN OF CARE. [id number] OF BOWEL, TEMPLETON CATHETER IN PLACE DRAINING DARK YELLOW URINE, ABLE TO REPOSITION SELF IN BED CONTINUE POC.
--- NOTE | 2020-01-29 11:36 | NUR ---
Received awake on bed. Due medications given as prescribed, able to swallow meds w/o difficulty. On room air saturating at 95%, using CPAP at night. Vital signs stable. Assisted in ADLs. On heart monitoring- strips attached to chart, Vpaced, with pacemaker in place- Cardiology monitoring patient; orthostatic BP obtained. On heart healthy diet- tolerating well; no nausea, no vomiting and no abdominal pain noted. On blood sugar monitoring- taken and recorded accordingly. With malloy in place- draining well; output measured and recorded accordingly. With SL at R hand. With abrasions on his arms due to fall. With wound at L leg- photo taken and dressing changed; charted. Complained of shoulder pain, scheduled lidocaine patch applied which patient said helped. Able to have a bowel movement today- charted; used bedside commode using walker and gait belt; able to sit out on chair today. Complained of cough, asking for medications- Dr Londono informed; a/w prescription. To continue monitoring patient.
[2020-01-29 17:36] VITALS: BP 166/96
[2020-01-29 20:15] VITALS: BP 172/90
[2020-01-30] VITALS: BP 156/81
--- NOTE | 2020-01-30 09:42 | NUR ---
PROGRESS PT A/O X 2 TO 3 GETS FRUSTRATED EASILY WITH CARES D/T WEAKNESS AND INABILITY TO MOVE HIMSELF, INCONTINENT OF URINE X 1 AND WAS DIFFICULT TO MOVE HIM AROUND IN BED HE WAS GRABBING US AND THE RAILINGS AND REFUSING TO TURN STATED TO JUST LEAVE HIM ALONE AND LET HIM . AFTER CARES WERE FINISHED PT APOLOGIZED. VSS PT HOPES TO TRANSFER TO [address] [place] [address].
[2020-01-30 14:40] VITALS: BP 127/63
--- NOTE | 2020-01-30 15:59 | NUR ---
Assumed patient care at 0715. Vital signs stable, LSCTA (diminished), BS x's 4, abdomen is soft and non-tender. Bandages to skin are clean, dry and intact. He continues to have several bruises on all extremeties from falling. He has been given Tramadol for pain with effectiveness for left shoulder pain. He is incontinent of urine and requires assist of 2 to 3 people to change him; he pulls against staff assisting him, as he does not seem to understand. Patient is very hard of hearing so, this may have something to do with it.He has been compliant with staying in bed. He requires max assist with transfers. Will continue to monitor this patient.
[2020-01-30 19:55] VITALS: BP 149/78
--- NOTE | 2020-01-31 03:49 | NUR ---
RECEIC=MEL CARE OF THIS PATIENT AT 1900. PATIENT ALERT AND ORIENTED X4. ACCUCHECK WAS 120. ON TELE. HAS PACEMAKER. C/O VERY MILD PAIN. WEARS C-PAP AT HS. HAS NON-PRODUCTIVE COUGH. MED GIVEN. RESP EVEN WITH DIMINISHED BS. SLEPT OFF AND ON DURING NIGHT.
[2020-01-31] MEDS ORDERED: METOPROLOL SUCC50 MG PO (08:45)
[2020-01-31 08:55] VITALS: BP 158/74
[2020-01-31 09:03] VITALS: BP 158/74
--- NOTE | 2020-01-31 12:51 | NUR ---
Patient to dc today. 5N evaled and accepting. Updated sister who is pleased her brother to dc to 5N. Reviewed with sister 5n and team conference. no further needs.
--- NOTE | 2020-01-31 16:57 | NUR ---
Assumed patient care at 0715. Vital signs stable, LSCTA (diminished), abdomen soft and non-tender, BS x's 4. Patient does have scrapes, bruises and wounds that are from falling at home, no signs and/or symptoms of infection. Patient has been incontinent of bowel and bladder but has been using a urinal today. 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 Patient moved to [address] [place] [address] for Rehabilitation at 1650. Sister notified of this.
== END 2020-01-31 17:19 | DRG 558 ==
LOC: ER 16:09 → 4W 19:06 → ER 19:13 → 4W 19:27
PROVIDERS: Emergency Medicine; Hospitalist; Nurse Practitioner Family; ADMIT Hospitalist
PROC: 5A09357 Assistance with Respiratory Ventilation, Less than 24 Consecutive Hours, Continuous Positive Airway Pressure (ICD-10-PCS; principal; 2020-01-28)
PROC: 5A09357 Assistance with Respiratory Ventilation, Less than 24 Consecutive Hours, Continuous Positive Airway Pressure (ICD-10-PCS; 2020-01-29)
PROC: 5A09357 Assistance with Respiratory Ventilation, Less than 24 Consecutive Hours, Continuous Positive Airway Pressure (ICD-10-PCS; 2020-01-30)
PROC: 5A09357 Assistance with Respiratory Ventilation, Less than 24 Consecutive Hours, Continuous Positive Airway Pressure (ICD-10-PCS; 2020-01-31)
DX: M62.82 Rhabdomyolysis (principal); K50.90 Crohn's disease, unspecified, without complications; R55 Syncope and collapse; I48.91 Unspecified atrial fibrillation; S40.012A Contusion of left shoulder, initial encounter; M48.00 Spinal stenosis, site unspecified; G40.909 Epilepsy, unspecified, not intractable, without status epilepticus; I10 Essential (primary) hypertension; G89.29 Other chronic pain; K21.9 Gastro-esophageal reflux disease without esophagitis; G62.9 Polyneuropathy, unspecified; F41.9 Anxiety disorder, unspecified; F32.9 Major depressive disorder, single episode, unspecified; E66.01 Morbid (severe) obesity due to excess calories; M54.5 Low back pain; Z60.2 Problems related to living alone; E78.5 Hyperlipidemia, unspecified; I49.5 Sick sinus syndrome; W18.39XA Other fall on same level, initial encounter; R63.4 Abnormal weight loss; M16.11 Unilateral primary osteoarthritis, right hip; N40.1 Benign prostatic hyperplasia with lower urinary tract symptoms; R35.0 Frequency of micturition; I09.9 Rheumatic heart disease, unspecified; G47.33 Obstructive sleep apnea (adult) (pediatric); Z79.01 Long term (current) use of anticoagulants; Z95.0 Presence of cardiac pacemaker; Z79.899 Other long term (current) drug therapy; Y93.89 Activity, other specified; Y92.098 Other place in other non-institutional residence as the place of occurrence of the external cause; Y99.8 Other external cause status; Z88.8 Allergy status to other drugs, medicaments and biological substances; Z68.37 Body mass index [BMI] 37.0-37.9, adult; Z87.891 Personal history of nicotine dependence
CPT/HCPCS: 10045

== ENCOUNTER 2020-01-31 11:40 | Inpatient (IN) | payer OTHER, BC ==
[~2020-01-31] VITALS: Ht 177.8 cm; Wt 110.7 kg
[~2020-01-31 11:40] MED LIST changes: +ELIQUIS2.5 MG PO; +METOPROLOL SUCC50 MG PO
[2020-01-31 17:45] VITALS: BP 140/82
--- NOTE | 2020-01-31 18:46 | NUR ---
PT ARRIVED AT 1700 FROM 4S. VITALS STABLE, TEMP. 99.2, CONTINUE TO MONITOR. PT HAS A COUGH (NON-PRODUCTIVE), STATED THAT ITS BEEN BOTHERING HIM FOR DAYS. LS COARSE/ DIMINISHED, SOB NOTED WITH ACTIVITY. ABDOMEN, FIRM, DISTENDED, LAST REPORTED BM 01/27 (LOOSE *3). PT IS INCONTINENT OF BLADDER, VOIDING PER URINAL BUT SPILLING. SKIN TEARS, BRUISES AND SCRAPES NOTED ON MURRAY KNEES AND ELBOWS. PICTURES TAKEN, ALL SITES THOMAS. C/O LEFT HIP AND LEFT SHOULDER PAIN. PT TRANSFERED IN BED AND STATED THAT HE COULDN'T GET OUT BED R/T WEAKNESS. REPOSITION Q2H. Q1H VISUAL CHECKS. ROOM NEAR NURSE'S DESK. FALL PRECAUTIONS IN PLACE
[2020-01-31 20:13] VITALS: BP 139/82
--- NOTE | 2020-02-01 02:05 | NUR ---
ASSUMED CARE AROUND 1900, PT A&O X 4, ANXIOUS AND CONFUSED AT TIMES, NO ACUTE CHANGES NOTED. VSS, O2 ON RA, CPAP AT HS. PT SAC AND [place], MEDS GIVEN PER ORDERS, TOLERATED WELL. PT PAIN CONTROLLED WITH ROSARIO TRAMADOL, RECEIVED PRN GUAFINESIN FOR COUGH. INCONTINENT OF B&B AT TIMES, USES URINAL, LAST BM 01/28/20. PT ASLEEP, CALL LIGHT WITHIN REACH, WILL CONTINUE TO MONITOR PER POC.
[2020-02-01 05:08] LABS: CALCIUM 9.1 mg/dL (8.5-10.1)
[2020-02-01 06:01] LABS: HEMATOCRIT 42.5 % (42.0-52.0); HEMOGLOBIN 14.7 gm/dL (14.0-18.0); MCHC 34.6 g/dL (28.0-37.0); MCV 95.3 fL (80.0-100.0); RBC 4.46 mil/uL (4.50-6.00); RDW 13.6 % (10.5-14.5); WBC 8.9 thou/uL (4.0-11.0)
[2020-02-01 06:04] LABS: POTASSIUM 2.7 mmol/L (3.5-5.1)
--- NOTE | 2020-02-01 09:02 | NUR ---
ASSUMED CARE AT 0700. PATIENT IS ALERT AND ORIENTEDX4. PATIENT IS VERY [place] . PATIENT PARAPROFESSIONAL AIDE ARE EQUAL. PATIENT IS VERY ANXIOUS AND GETS SOB WITH EXERTION LUNGS ARE COARSE AND DEMINISHED WITH A NON-PRODUCTIVE COUGH. PATIENT STATES HE IS SOB, 02 SAT 84%. PATIENT STARTED ON 02 AT 2L PER N/C. TOOL GRINDER OPERATOR SURFACE IS HERE TO SEE PATIENT. PLAN CXR, RESPIRATORY TX. ABD IS SOFT WITH BSX4. NO BM X 3 DAYS. LAXATIVE ORDERED. UP WITH P.T. AND ASSIST OF 1 STAFF AND GAIT BELT AND WALKER. FALL AND SAFETY PROTOCOLS IN PLACE. C/O LEFT SHOULDER PAIN. MEDICATED WITH [facility] PAIN MED AND ANXIETY MEDICATION. DR. JUAREZ HERE TO SEE PATIENT. CONTINUES TO PROGRESS SLOWLY TOWARDS D/C GOALS. WILL CONTINUE TO MONITER.
--- NOTE | 2020-02-01 10:01 | NUR ---
WOUND CONSULT; THE PATIENT WAS FOUND ON THE GROUND AT HOME, DOWN FOR 8 HOURS. FRICTION WOUND TO THE ELBOWS BILATERALLY AND THE KNEES BILATERALLY. NO S/S OF INFECTION. THE PATIENT SEEMS TO BE ALERT AND ORIENTED X 3. RECOMMENDATIONS; 1-BARRIER WIPES TO THE KNEES, DAILY/PRN 2-BETADINE TO THE ELBOWS, DAILY/PRN RN PRESENT
--- NOTE | 2020-02-01 13:08 | NUR ---
team meeting, recommendation: consulted dr benoit rt pt anxiety. re team. need to discuss with pt and family how much support he will have at dc.
--- NOTE | 2020-02-01 15:29 | NUR ---
Nutrition: pt admitted with multifactorial gait instability and seen due to rehab admission orders. Upon further chart review, noted pt with friction wounds to bilateral elbows and bilateral knees due to being found down at home x 8 hours. Eating well, 75-100% of meals on heart healthy diet. Pt wanting asphalt spreader operator foods, educated on and assisted with meal ordering. Weight hx indicates pt with 60# intentional weight loss over the past year. On B12 and bowel regimen with last BM documented on 01/28. K 2.7 today, S/P replacement. Place as low nutrition risk.
[2020-02-01 19:21] VITALS: BP 124/62
--- NOTE | 2020-02-02 04:13 | NUR ---
Assumed pt care at 1900. Pt's A/OX4,forgetful and anxious. C/o pain to left knee and shoulder with movement;requires max assist with cares as pt resting to be turned to get cleaned up. Incontinent of urine, but also able to use the urinal with min assist from nurse. Urine is dark yellow in color,PO intake encouraged. CXR results called in to [facility] HATCH TENDER last evening;pt started on ABT's, K+ redrawn and replaced as ordered. Redness noted on groin,moisture barrier applied prn. Pt medicated for pain/cough per EMAR with relief reported. Fall precautions in place,pt calls approp for help. Resting w/o any distress noted at this time CPAP on at this time,sats in the lower 90's. Oxygen 2L/NC used when not on CPAP. Will continue to monitor pt. PIV patent on right hand,flushes well.
[2020-02-02 08:15] VITALS: BP 126/64
[2020-02-02 08:26] VITALS: BP 126/64
--- NOTE | 2020-02-02 08:40 | NUR ---
ASSUMED CARE AT 0700. REPORTS SLEPT BETTER LAST NGIHT. PATIENT IS ALERT AND ORIENTEDX4. PATIENT IS VERY [place]. REASSESSMENT PER CHART. PATIENT SENIOR CLINICAL DATA MANAGER ARE EQUAL. GETS SOB WITH EXERTION. SAT 98% ON 1L OF OXYGEN. LUNGS ARE COARSE AND DIMINISHED WITH A NON-PRODUCTIVE COUGH. GAVE PRN COUGH MED PER REQUEST. CHEST XRAY SHOWS INFILTRATE ON LEFT MORE THAN THE RIGHT. PT IS ON ABT DOXYCYCLINE NOW. ABD IS SOFT WITH BSX4. NO BM X 3 DAYS. CONTINUE TO BE ON MIRALAX DAILY. UP WITH P.T MAX WITH BED MOBILITY, MOD ASSIST WITH TRANSFER AND MIN ASSIST OF 1 STAFF AND GAIT BELT AND WALKER. OFFERED SUPPORTIVE CARE. ENCOURAGED PT TO VOICE HIS NEEDS. FALL AND SAFETY PROTOCOLS IN PLACE. C/O LEFT SHOULDER PAIN, RIBS PAIN. RATES PAIN 6/10 SCHEDULE PAIN MEDS GIVEN ORDERED WITH MORNING MEDS AND ANXIETY MEDICATION. PT IS UP IN DINNING ROOM EATING BREAKFAST. CONTINUES TO PROGRESS SLOWLY TOWARDS D/C GOALS. WILL CONTINUE TO MONITOR.
[2020-02-02 21:38] VITALS: BP 123/66
--- NOTE | 2020-02-03 00:50 | NUR ---
Assumed care of patient this pm shift. Patient in good spirits. Patient sitting in bed watching tv. Patient alert and oriented x4. Patient uses the urinal bedside. Patients assessment shows clear breath sounds, hypoactive bowel sounds, and s1 s2 heard with auscultation. Patient takes medications whole. Patient wears cpap at [facility]. CPAP turned on around 2100 hours. Patient calm and cooperative, no special requests at this time. We will continue to monitor per hospital protocol.
[2020-02-03 08:00] VITALS: BP 114/71
--- NOTE | 2020-02-03 08:51 | NUR ---
ASSUMED CARE AT 0700. PATIENT IS ALERT AND ORIENTED X4, BUT IS FORGETFUL AT TIMES. PATIENT IS VERY [place]. LUNGS ARE DEMINISHED. PATIENT CONTINUES ON ABT FOR RIGHT LOWER LOBE INFILTRATES. PATIENT CONTINUES ON RESPIRATORY TX. ABD IS SOFT AND ROUNDED. NO BM SINCE 01/28/20. LAXATIVES GIVEN. PATIENT IS UP IN THE CHAIR FOR BREAKFAST. PATIENT IS UP WITH ASSIST OF 1 STAFF AND GAIT BELT. PATIENT IS VOIDING [place] COLORED URINE PER URINAL. FALL AND SAFETY PROTOCOLS IN PLACE. C/O PAIN IN HIS LEFT SHOULDER. MEDICATED WITH SCED PAIN MED. CONDTINUES TO PROGRESS SLOWLY TOWARDS D/C GOALS. WILL CONTINUE TO MONITER.
--- NOTE | 2020-02-03 10:14 | NUR ---
PATIENT HAS S.L. IN HIS RIGHT HAND. IV SITE WITHOUT REDNESS OR SWELLING. WILL CONTINUE TO MONITER.
[2020-02-03 19:13] VITALS: BP 107/68
--- NOTE | 2020-02-04 01:01 | NUR ---
PT ALERT AND ORIENTED X 4, CONFUSED AT TIMES. CPAP ON DURING THE NIGHT. INCONT OF URINE AT TIMES. DOES USE URINAL BUT SPILLS IT. HYDRALAZINE HELD AT HS SINCE BP WAS 107/65 AND HE HAD 2 OTHER BP MEDS TO TAKE. PT DENIES PAIN OR DISCOMFORT. BED ALARM ON FOR SAFETY. PT APPEARS TO BE SLEEPING ON HOURLY ROUNDS.
[2020-02-04 05:50] LABS: BASOPHILS 0.3 % (0.0-2.0); EOSINOPHILS 3.1 % (0.0-3.0); HEMATOCRIT 40.6 % (42.0-52.0); HEMOGLOBIN 13.8 gm/dL (14.0-18.0); LYMPHOCYTES 22.9 % (24.0-44.0); MCH 32.8 pg (26.0-34.0); MCV 96.6 fL (80.0-100.0); MONOCYTES 9.6 % (1.0-8.0); PLATELET COUNT 182 thou/uL (150-400); POLYS 64.1 % (36.0-66.0); RDW 13.3 % (10.5-14.5); WBC 4.7 thou/uL (4.0-11.0)
[2020-02-04 05:59] LABS: CALCIUM 9.5 mg/dL (8.5-10.1); CREATININE 1.1 mg/dL (0.7-1.3); POTASSIUM 3.1 mmol/L (3.5-5.1)
[2020-02-04 08:00] VITALS: BP 120/74
--- NOTE | 2020-02-04 08:01 | NUR ---
ASSUMED CARE AT 0700. REPORTS SLEPT BETTER LAST NGIHT. PATIENT IS ALERT AND ORIENTEDX4. PATIENT IS VERY [place]. LABS REVIEWED. GAME MANAGER CAME TO SEE PT THIS AM. INFORMED HIM THAT PT'S B/P HAS BEEN LOW AND ON COUPLES HTN MEDS. K 3.1. DR. GARCIA ADJUSTED HTN. D/C HTCZ 25MG BID, HYDRALIZINE 25MG BID REDUCE NORVASC 5MG DAILY. K SUPPLEMENT ADDED. [facility] OT GOT PT UP FOR SHOWER. REASSESSMENT PER CHART. PATIENT FACILITY SPECIALIST ARE EQUAL. GETS SOB WITH EXERTION AND ACTIVITY. SAT 95% ON RA. LUNGS DIMINISHED WITH A NON-PRODUCTIVE COUGH. GAVE PRN COUGH MED PER REQUEST. WILL HAVE CHEST XRAY FOLLOW UP TODAY. PT IS ON ABT DOXYCYCLINE ABD IS SOFT WITH BSX4. LAST BM WAS 02/02. CONTINUE TO BE ON MIRALAX DAILY. UP WITH P.T MAX WITH BED MOBILITY, MOD ASSIST WITH TRANSFER AND MIN ASSIST OF 1 STAFF AND GAIT BELT AND WALKER. HE SAID HE FEELS BETTER. C/O LEFT SHOULDER PAIN. VOLTAREN GEL PRN GIVEN. MORNING MEDS AND PAIN MEDS GIVEN SCHEDULED. OFFERED SUPPORTIVE CARE. ENCOURAGED PT TO VOICE HIS NEEDS. FALL AND SAFETY PROTOCOLS IN PLACE. SITITNG UP IN RECLINER EATING BREAKFAST. CONTINUES TO PROGRESS SLOWLY TOWARDS D/C GOALS. WILL CONTINUE TO MONITOR.
--- NOTE | 2020-02-04 10:46 | NUR ---
WOUND CARE F/U ASSESSED WOUNDS, PT ALERT, COOPERATIVE, BILAT ELBOW WOUNDS AND KNEES ABRASIONS WOUNDS DRY, NO DRAINAGE, NO S/S INFECTION, HEALING RECOMMENDATIONS CONT NO STING SKIN PREP TO BILAT WOUND KNEES, OPEN TO AIR, PAINT ELBOWS W/ BETADINE, NO DRESSINGS NEEDED, OPEN TO AIR CHANGE AGENT AWARE
--- NOTE | 2020-02-04 17:09 | HC ---
[facility] [place] [address] CONSULTATION Name: FRANKLIN MCKEON Room #: 514-P ADM IN M.R.#: [id number] Admission: 01/31/20 Attend Phys: Mynor Fetnon MD Discharge: Date of : 41 Report #: [id number] THIS REPORT FOR: cc: Juan R Hsu,Mynor Hope MD ~ CC: Mynor Hsu HISTORY OF PRESENT ILLNESS: The patient is a 79-year-old white male who was admitted after a fall at home, hitting his left shoulder and his head. No loss of consciousness, but he laid on the floor for 10 hours. His neighbor heard him yelling. He was admitted, noted to have mild rhabdomyolysis, significant weakness and debilitation. Orthopedics saw him regarding his left shoulder. No fracture, but they recommended consideration of a diagnostic ultrasound if symptoms continued. The patient does have premorbid left hip degenerative arthritis and had been previously scheduled for a left hip surgery for the middle of February. At this point, he is significantly debilitated, has the rhabdomyolysis and is being seen in consultation regarding rehabilitation issues. PAST MEDICAL HISTORY: Includes atrial fibrillation. He was recently started on Eliquis per history and he wonders if it contributed to his fall. He has a history of neuropathy, atrial fibrillation, degenerative arthritis, GERD, morbid obesity. MEDICATIONS: Please see the full medication listing. SOCIAL HISTORY: He lives in an apartment alone. No steps. Premorbid walker ambulator. He does have CPAP. REVIEW OF SYSTEMS: No current complaints of chest pain, shortness of breath or abdominal discomfort. PHYSICAL EXAMINATION: GENERAL: A 79-year-old pleasant, obese white male in no obvious distress. VITAL SIGNS: Last recorded temperature 98.6, pulse 79, respirations 18, blood pressure 158/74. Height 5 feet 10 inches, weight 260 pounds. NEUROLOGIC: He is alert, pleasant, hard of hearing. Follows basic 1 step commands. Facies are symmetric tends to favor that left shoulder some, has some decreased end range. Strength is probably grade 4-/5, right upper extremity strength is probably grade 4- to 3+/5. In his lower extremities, there is no focal calf swelling, favors with that left hip discomfort. Strength is probably grade 3+/5. DTRs are trace to 1. He is mod assist with sit to stand. He is able to ambulate a short distance mod assist with a front-wheeled walker. ASSESSMENT: A 79-year-old white male with the following problem list: [address] [address] CONSULTATION Name: FRANKLIN MCKEON Room #: 514-P [facility] IN M.R.#: [id number] Admission: 01/31/20 Attend Phys: Mynor Fenton MD Discharge: Date of : 41 Report #: [id number] 1. Multifactorial gait instability. 2. 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 3. Peripheral neuropathy, may be idiopathic in etiology. 4. History of obstructive sleep apnea. 5. Exogenous obesity. 6. Hypertension. 7. Chronic back pain. 8. History of a pacemaker in 1999 and 2007. PLAN: The patient is a candidate for an acute in-hospital inpatient rehabilitation stay. Can plan on transferring to the acute inpatient rehab [facility] if medically ready and a bed available. The patient also has a history of atrial fibrillation, diagnosed 01/2020 for which he was started on Eliquis. In light of recent fall and debilitation, he is noted to be a high risk candidate for further anticoagulation and they are continuing to hold for now and reassess as an outpatient. ADDENDUM: The patient also has a history of Meniere's disease and there may be a component of vertigo contributing to his fall. <ELECTRONICALLY SIGNED> By: Mynor Fenton MD 02/04/20 1709 [id number] Mynor Fenton MD /nt
--- NOTE | 2020-02-04 17:09 | H ---
[facility] [place] [address] HISTORY AND PHYSICAL Name: FRANKLIN MCKEON Room #: 514-P ADM IN M.R.#: [id number] Admission: 01/31/20 Attend Phys: Mynor Fenton MD Discharge: Date of : 41 Report #: [id number] THIS REPORT FOR: cc: Juan R Hsu,Mynor Hope MD ~ CC: Mynor Hsu DATE OF SERVICE: 01/31/2020 HISTORY AND PHYSICAL/POST ADMISSION PHYSICIAN EVALUATION HISTORY OF PRESENT ILLNESS: The patient is a 79-year-old white male who was admitted after falling at home, hitting his left shoulder and his head. He was originally admitted on 01/27/2020. The patient had laid on the floor for approximately 10 hours. No loss of consciousness. He was noted to have mild rhabdomyolysis, significant weakness, and debilitation. He does have premorbid decreased distal sensation and has been diagnosed with an idiopathic peripheral neuropathy and has had 2 prior EMG/NCV least per his history as an outpatient. The patient also has premorbid left hip degenerative arthritis and had been previously scheduled for a left hip surgery for the middle of 02/2020. He was noted to have significant generalized debilitation, gait instability, rhabdomyolysis, and an idiopathic peripheral neuropathy. He has been admitted now for acute in-hospital inpatient rehabilitation. PAST MEDICAL HISTORY: Includes atrial fibrillation. He was recently started on Eliquis. He has the history of the neuropathy as noted above, atrial fibrillation, degenerative arthritis, GERD, morbid obesity. MEDICATIONS: Please see the full medication listing. SOCIAL HISTORY: He lives in an apartment alone. No steps. Premorbid walker ambulator. He does have CPAP. REVIEW OF SYSTEMS: No current complaints of chest pain, shortness of breath or abdominal discomfort. PHYSICAL EXAMINATION: GENERAL: He is a pleasant, overweight 79-year-old white male, in no obvious distress. The patient is alert. VITAL SIGNS: Last recorded temperature 37.1, pulse 61, respirations 18, and blood pressure 145/92. HEENT: Appeared to be benign. NEUROLOGIC: Cranial nerves are grossly intact. Facies are symmetric. He is hard of hearing. He has difficulty trying to adhere to the left ear. Follows [address] [address] HISTORY AND PHYSICAL Name: FRANKLIN MCKEON Room #: 514-P [facility] IN .R.#: [id number] Admission: 01/31/20 Attend Phys: Mynor Fenton MD Discharge: Date of : 41 Report #: [id number] basic 1 step commands. CHEST: Sounded clear, some decreased distal breath sounds. CARDIOVASCULAR: Sounded regular rate and rhythm. ABDOMEN: Bowel sounds positive, nontender. He does have significant obesity. EXTREMITIES: He has functional range of motion of both upper extremities. Strength is grade 4-/5. Lower extremities, no focal calf swelling. He does favor the left hip some with left hip discomfort. Strength is probably grade 3+/5. He has decreased distal sensation in a stocking distribution. Decreased proprioception in large toes was noted. Strength again is probably at 3+/5. He is mod assist with sit to stand and has been able to ambulate a short distance mod assist with a front-wheeled walker. ASSESSMENT: A 79-year-old white male with the following problems: 1. Idiopathic peripheral neuropathy. 2. Multifactorial gait instability. 3. Rhabdomyolysis. 4. History of obstructive sleep apnea. 5. Exogenous obesity. 6. 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 7. Hypertension. 8. Chronic back pain. 9. History of a pacemaker in 1999 and 2007. PLAN: The patient has been admitted for acute in-hospital inpatient rehabilitation. From a post-admission physician evaluation perspective, there are no relevant changes since the preadmission screening. Please see the above review of prior and current medical and functional conditions and comorbidities. Please see the patient's previous and current functional status. As far as risk of complications, the patient has multiple medical comorbidities as noted above. Initial plan of care involves the interdisciplinary acute inpatient rehabilitation program. Measurable functional goals would be for the patient to become modified independent with transfers, mobility, ADLs, hopefully return back to his prior living situation. We will also be asking speech therapy to evaluate regarding cognitive issues and neuropsychology. Prognosis is reasonably good with estimated length of stay probably at least 10 days to 2 weeks. Potential barriers would include his multiple medical comorbidities and decreased functional status. The patient meets diagnostic criteria for an acute in-hospital inpatient rehabilitation stay. He meets the medical necessity criteria and we will have [address] [address] HISTORY AND PHYSICAL Name: FRANKLIN MCKEON JR Room #: 514-P [facility] IN .R.#: [id number] Admission: 01/31/20 Attend Phys: Mynor Fenton MD Discharge: Date of : 41 Report #: [id number] the chain sales consultant physicians continue to follow. He does have the tolerance for therapies and has appropriate discharge goals back to the home setting. <ELECTRONICALLY SIGNED> By: Mynor Fenton MD 02/04/20 1709 [id number] Mynor Fenton MD /nt
[2020-02-04 20:29] VITALS: BP 110/68
--- NOTE | 2020-02-05 02:52 | NUR ---
PATIENT ALERT AND ORIENTED X4. ANXIOUS WITH RAPID CONVERSATION AND MULTIPLE NEEDS AT BEGINNING OF SHIFT. VOIDING PER URINAL. REQUESTED TO BE TRANSFERED FROM BED TO CHAIR AT BEGINING OF SHIFT, HOWEVER, DID NOT REMAIN IN CHAIR MORE THAN 45 MINUTES BEFORE REQUESTING TO GO BACK TO BED. VERY [place]. CPAP ON DURING THE NIGHT WITH ADJUSTMENTS BY RT. WILL MONITOR.
[2020-02-05 07:45] VITALS: BP 123/64
--- NOTE | 2020-02-05 08:23 | NUR ---
ASSUMED CARE AT 0700. REPORTS SLEPT BETTER LAST NGIHT.PT CONT B&B, ASSISTED PT TO BS AND HAD LARGE SOFT BM THIS AM. PATIENT IS ALERT AND ORIENTEDX4. PATIENT IS VERY [place]. REASSESSMENT PER CHART. PATIENT FILM AND VIDEO EDITOR ARE EQUAL. PT IS ON ABT DOXYCYCLINE FOR PNEUMONIA, ENCOURAGED PT TO DO DEEP BREATHING AND USING IS. PT UP WITH MIN ASSIST OF 1 STAFF AND GAIT BELT AND WALKER. HE SAID HE FEELS BETTER. DENIES PAIN THIS AM. SAID I DON'T NEED PAIN MEDS. ALL MORNING MEDS GIVEN EXCEPT TRAMADOL AND MELOXICAM. B/P 123/64, NORVASC NOT GIVEN PER ORDERED. HAS REDNESS ON BUTTOCK. PT TURN Q 2HR. ZGUARD PASTE APPLIED. OFFERED SUPPORTIVE CARE. ENCOURAGED PT TO VOICE HIS NEEDS. FALL AND SAFETY PROTOCOLS IN PLACE. SITITNG UP IN RECLINER EATING BREAKFAST. CONTINUES TO PROGRESS SLOWLY TOWARDS D/C GOALS. WILL CONTINUE TO MONITOR.
[2020-02-05 20:32] VITALS: BP 150/95
--- NOTE | 2020-02-06 04:34 | NUR ---
ASSESSMENT: PT REMAIN ALERT AND ORIENT TIMES THREE, FORGETFUL TO SITUATION AND TIME. PT WENT FROM BED TO THE CHAIR THREE TIMES. PRN PAIN MEDS AND SLEEP AID GIVEN WITH PARTIAL RESULTS. PT DID NOT SLEEP WELL DURING THE NIGHT AND CONSTANTLY RANG HIS CALL LIGHT FOR ASSISTANCE. DID HAVE A LARGE BM DURING DAY SHIFT AND REFUSED HS LAXATIVE AND STOOL SOFTNER. PT IS ANXIOUS MOST OF THE TIME AND IS VERY NEEDY WITHOUT REGARDS TO OTHER'S CARE. ABLE TO USE MINIMAL ASSISTANCE FOR ELEVATION WITH WALKER. C/O RIGHT SIDED PAIN POST FALL AT HOME AND COUGHING. PT STATE THAT HIS SECRETIONS ORAL HAVE INCREASED. ENCOURAGED TO SPIT AND NOT TO SWALLOWING THESE SECRETIONS DWON. RT TX EVERY 4 HRS. SLOW PROGRESS TOWARDS DC GOALS. WILL CONTINUE TO MONITOR,
[2020-02-06 08:45] VITALS: BP 150/69
--- NOTE | 2020-02-06 17:17 | NUR ---
ASSUMED CARE OF PT AT 0700. PT IS A&OX4 AND VITAL SIGNS ARE STABLE. PT MAKING INAPPROPRIATE COMMENTS TO STAFF THROUGH OUT SHIFT WITH REFERENCES TO GENITALIA AND APPEARANCE OF STAFF MEMBERS. NURSE DISCUSSED INAPPROPRIATE BEHAVIOR WITH PT AND PT STAES THAT HE WILL REFRAIN FROM USING COMMENTS. PT IMPULSIVE AND TURNING OFF ALARMS ON HIS OWN, PT EDUCATED ABOUT FALL RISK AND PREVENTION, REINFORCEMENT NEEDED. PT REPORTED POOR SLEEP, DISCUSSED WITH PROVIDER WHO STATED THAT DUE TO MULTIPLE MEDICAITONS ALREADY ORDERED NO CHANGES WOULD BE MADE AND ENCOURAGE PT TO USE NON-PHARMACOLOGICAL METHODS FOR SLEEP. FALL PRECAUTIONS IN PLACE AND NURSING WILL CONTINUE TO MONITOR.
[2020-02-06 20:15] VITALS: BP 157/83
--- NOTE | 2020-02-07 00:17 | NUR ---
PT ALERT AND ORIENTED X 4. STANDS AT SIDE OF BED TO USE URINAL WITH ASSIST X 1. CPAP ON DURING THE NIGHT. PT DENIES PAIN OR DISCOMFORT. BED ALARM ON FOR SAFETY. PT CHECKED ON HOURLY ROUNDS. PT CALLS OUT FREQUENTLY FOR VARIOUS THINGS.
[2020-02-07 04:55] LABS: CALCIUM 9.7 mg/dL (8.5-10.1)
[2020-02-07 06:55] VITALS: BP 152/92
[2020-02-07 19:16] VITALS: BP 144/71
--- NOTE | 2020-02-07 19:48 | NUR ---
ASSUMED CARE OF PT AT 0700. PT IS A&OX4 AND VITAL SIGNS ARE STABLE. PT CONTINUES TO TURN OFF ALARMS AND SELF TRANSFER AND AMBULATE IN ROOM, PT EDUCATED ABOUT FALL PRECAUTIONS. NO INAPPROPRIATE COMMENTS REPORTED BY STAFF THIS SHIFT. FALL PRECATIONS IN PLACE AND NURSING WILL CONTINUE TO MONITOR.
--- NOTE | 2020-02-08 02:16 | NUR ---
PT ASSESSMENT COMPLETED AND VSS. MEDS GIVEN ORDERED AND WELL TOLERATED. FALL PRECAUTIONS IN PLACE. VOIDING MODERATE AMOUNT OF YELLOW URINE PER URINAL. CPAP ON AT HS. SAT WNL. CONT 02 SAT MONITOR STATES THAT PT HR GOES INTO THE 40'S. CHECKED PT PULSE AND PT IS REALLY IN THE 80'S BUT BECAUSE OF HIS AFIB IT IS NOT PICKING UP PROPERLY. ALARMING FREQUENTLY. PT WAKES EASILY AND DOES NOT HAVE SYMPTOMS. CONTACTED DIGITAL COMPUTER OPERATOR. PER ORDERS IT IS OK TO TURN OFF MONITOR AND MANUALLY CHECK PT DURING THE NIGHT. PT SLEEPING WELL. DENIES NEES. WILL CONTINUE TO MONITOR FREQUENTLY.
[2020-02-08 07:42] VITALS: BP 132/67
--- NOTE | 2020-02-08 11:27 | NUR ---
bedside staff delivered hh list choice to pt, cm placed vendor form on pt chart.
--- NOTE | 2020-02-08 15:15 | NUR ---
ASSUMED CARE AT 1000. PATIENT IS ALERT AND ORIENTED X4, BUT IMPULSIVE. PATIENT TORRES'S, CLINICAL PATHOLOGIST ARE EQUAL. LUNGS ARE CLEAR AND DEMINISHED. PATIENT HAS PACEMAKER. PATIENT IS ANXIOUS AT TIMES. UP WITH ASSIST OF 1 STAFF AND GAIT BELT TO RECLINER. UP IN THE RECLINER FOR MEALS. VOIDS TEA COLORED URINE PER URINAL. FALL AND SAFETY PROTOCOLS IN PLACE. DENIES PAIN AT THIS TIME. CONTINUES TO PROGRESS TOWARDS D/C GOALS. WILL CONTINUE TO MONITER.
--- NOTE | 2020-02-08 16:31 | NUR ---
FAXED REFERRAL TO [facility] RECEIVED CONFIRMATION AND SPOKE WITH ELVIS IN INTAKE THEY WILL REVIEW. ANTICIPATE DC 02/10.
[2020-02-08 19:30] VITALS: BP 167/106
[2020-02-08 22:00] VITALS: BP 147/81
--- NOTE | 2020-02-09 01:21 | NUR ---
PT ALERT AND ORIENTED X 4. SITS ON SIDE OF BED TO USE URINAL. CPAP ON DURING THE NIGHT. BP 167/106 AT START OF SHIFT. RECHECKED AT 2200 AND IT WAS 147/81. PT DENIES PAIN OR DISCOMFORT. BED ALARM ON FOR SAFETY. PT APPEARS TO BE SLEEPING ON HOURLY ROUNDS.
[2020-02-09 06:45] VITALS: BP 141/93
--- NOTE | 2020-02-09 10:29 | NUR ---
ASSUMED CARE AT 0700. PATIENT IS ALERT AND ORIENTED X4, [place], ABLE TO VOICE HIS NEEDS. REPORTS SLEPT FAIR LAST NIGHT D/T LACK OF WATER IN CPAP. REFILLED WATER NOW AND BROUGHT NEW DISTILLED WATER. REASSESSMENT PER CHART. LUNGS ARE CLEAR AND DEMINISHED. PATIENT HAS PACEMAKER. BS HYPOACTIVE. LAST BM WAS 2 DAYS AGO. MIRALAX GIVEN WITH WARM APPLE JUICE. WILL CONTINUE TO MONTIOR BM. PATIENT IS ANXIOUS AT TIMES. C/O LEFT SHOULDER PAIN. PRN VOLTAREN GEL APPLIED. HE SAID IT HELPS. UP WITH ASSIST OF 1 STAFF AND GAIT BELT TO RECLINER. UP IN THE RECLINER FOR MEALS. VOIDS TEA COLORED URINE PER URINAL. ENCOURAGED PT TO DRINK MORE WATER. FALL AND SAFETY PROTOCOLS IN PLACE. DENIES PAIN AT THIS TIME. CONTINUES TO PROGRESS TOWARDS D/C GOALS. WILL CONTINUE TO MONITOR.
[2020-02-09 10:35] VITALS: BP 141/93
--- NOTE | 2020-02-09 13:54 | NUR ---
Nutrition followup: Pt continues on rehab unit with planned D/C 02/10. Wound care following for friction wounds to elbows/knees. Pt continues to eat well 75-100% of meals on heart healthy diet. Able to order meals. Pt voices he wants to maintain his prior weight loss as he is having hip replacement in 2 weeks. Dietary interventions/activity reviewed. Last BM 02/05 doc, on miralax BID. Continue as low nutrition risk.
[2020-02-09 19:07] VITALS: BP 124/70
--- NOTE | 2020-02-09 20:18 | NUR ---
PT REMEMBERED TO ASK FOR HIS MEDICATION THIS EVENING. HE USED HIS LIST AND ASKED FOR THE HIGHLIGHTED MEDICATIONS.
--- NOTE | 2020-02-10 01:11 | NUR ---
PT ASSESSMENT COMPLETED AND VSS. MEDS GIVEN ORDERED AND WELL TOLERATED. FALL PRECAUTIONS IN PLACE. UP TO THE BEDSIDE TO VOID PER URINAL. VOIDING MODERATE AMOUNT OF YELLOW URINE. SLEEPING WELL. CPAP ON. SAT AND HR WNL AT THIS TIME. WILL CONTINUE TO MONITOR FREQUENTLY.
[2020-02-10] MEDS ORDERED: ULTRA-LIGHT RO1 EACH (10:45)
--- NOTE | 2020-02-10 11:12 | NUR ---
ASSUMED CARE AT 0700. PATIENT IS ALERT AND ORIENTEDX4. PATIENT TORRES'S, TREE SURGEON ARE EQUAL. LUNGS ARE CLEAR AND DEMINISHED. ABD IS SOFT WITH BSX4. UP IN CHAIR FOR MEALS. PATIENT IS UP WITH WALKER AND GAIT BELT. FALL AND SAFETY PROTOCOLS IN PLACE. C/O PAIN IN HIS LEFT HIP. MEDICATED WITH PRN PAIN MED. CONTINUES TO PROGRESS TOWARDS D/C GOALS. WILL CONTINUE TO MONITER.
[2020-02-10 20:00] VITALS: BP 116/65
--- NOTE | 2020-02-11 01:13 | NUR ---
PT ALERT AND ORIENTED X 4. TRANSFERRED TO BED FROM RECLINER AROUND 1999 WITH ASSIST X 1. CPAP ON DURING THE NIGHT. PT ASKED FOR MEDS APPROPRIATELY AT 1999. PT DENIES PAIN OR DISCOMFORT. BED ALARM ON FOR SAFETY. PT CHECKED ON HOURLY ROUNDS.
--- NOTE | 2020-02-11 07:30 | NUR ---
tuan called into pt room by dr stallworth, pt had question on pick pulling machine operator time. re-education with pt, cont to wear a mask during visit, tuan asked pt to call his sister for pick pulling machine operator time, " no you just go ahead and call her ok"/robert. tuan called and left a message for vicky
[2020-02-11 08:00] VITALS: BP 116/65
[2020-02-11] MEDS ORDERED: VITAMIN B-12500 MCG PO (08:22)
[2020-02-11] MEDS ORDERED: COLACE100 MG PO (08:22)
[2020-02-11] MEDS ORDERED: HYDROCHLOROTHIA25 M2 PO (08:22)
[2020-02-11] MEDS ORDERED: FELODIPINE 5 MG5 M1 PO (08:22)
[2020-02-11] MEDS ORDERED: TYLENOL325 MG PO (08:22)
[2020-02-11] MEDS ORDERED: MELATONIN5 M1 PO (08:22)
[2020-02-11] MEDS ORDERED: VOLTAREN GEL 1100 G2 TOP (08:22)
[2020-02-11] MEDS ORDERED: VITAMIN D325 MCG PO (08:22)
[2020-02-11] MEDS ORDERED: TRAMADOL 50 MG50 MG PO (08:23)
[2020-02-11 09:41] VITALS: BP 116/65
--- NOTE | 2020-02-11 11:13 | NUR ---
PT DISCHARGING TODAY TO HOME WITH [facility] FAXED DC ORDERS/SUMMARY RECEIVED CONFIRMATION AND THEY WILL NOTIFY PT TO SET UP VISITS.
--- NOTE | 2020-02-11 11:58 | NUR ---
ASSUMED CARE AT 0700. REPORTS SLEPT FAIR LAST NIGHT.PATIENT IS ALERT AND ORIENTED X4, [place], ABLE TO VOICE HIS NEEDS. REASSESSMENT PER CHART. LUNGS ARE CLEAR AND DIMINISHED. PATIENT HAS PACEMAKER. BS HYPOACTIVE. HAD LAST YESTERDA. MIRALAX GIVEN ORDERED. UP WITH ASSIST OF 1 STAFF AND GAIT BELT TO RECLINER. UP IN THE RECLINER FOR MEALS. VOIDS TEA COLORED URINE PER URINAL. ENCOURAGED PT TO DRINK MORE WATER. [employer] AND [employer] PARALEGAL AUDIT REVIEWER WAS HERE THIS AM. NOTIFIED HER THAT PT IS GOING HOME TODAY. NEEDS PARAMETER ON HTN MEDS, B/P LOW SOMETIMES. REVIEWED DISCHARGE MEDICATIONS WITH PT AND ENCOURAGED PT TO CHECK B/P TAKING MEDS.REVIEWED DISCHARGE INSTRUCTION AND FOLLOW UP APPOINTMENT WITH PT. PT WILL GO HOME WITH . PT HAS NEW WALKER HERE, WILL SEND WITH PT. PT'S SISTER WILL PICK HIM UP AT 12OO. FALL AND SAFETY PROTOCOLS IN PLACE. DENIES PAIN AT THIS TIME. WILL CONTINUE TO MONITOR.
--- NOTE | 2020-02-13 19:30 | HC ---
[facility] [place] [address] CONSULTATION Name: FRANKLIN MCKEON Room #: 514-P [facility] IN M.R.#: [id number] Admission: 01/31/20 Attend Phys: Mynor Fenton MD Discharge: 02/11/20 Date of : 42 Report #: [id number] THIS REPORT FOR: cc: Juan R Hsu,Luis Alberto Waller PhD ~ CC: Mynor Hsu DATE OF SERVICE: 02/07/2020 BEHAVIORAL STATUS EXAM ATTENDING PHYSICIAN: Mynor Fenton MD. [employer] ATTENDANT: Luis Alberto Antonio, PhD. CLINICAL PRESENTATION: The patient is a 79-year-old male admitted to the rehabilitation unit at [facility] for a comprehensive inpatient rehabilitation program. He was admitted following an incident in which he had fallen at his home and was unconscious and was on the ground for approximately 10 hours. There is no reported loss of consciousness. A neighbor heard him yelling for help and he was subsequently discovered and then 911 called and brought into the hospital. Upon admission, he was noted to have a mild rhabdomyolysis, significant weakness and debilitation. 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 A complete description of his medical condition, history and medications can be found in his medical records. Neuropsychological consultation was requested to provide assistance in the assessment of cognitive and emotional status and to provide recommendations and services. Prior to this most recent admission, the patient is reported to have been living independently in his own home. The patient has a remote history of alcohol abuse. He has been sober for over 30 years and has been actively involved in Alcoholics Anonymous. He discontinued driving approximately 1 year ago. The patient is single and never . 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 The patient is a college graduate. TECHNIQUES UTILIZED: Clinical interview, review of medical records, staff consultation and behavioral observation, mini mental status exam 2 standard version and clock drawing. [facility] [address] [place] [address] CONSULTATION Name: FRANKLIN MCKEON Room #: 514-P [facility] IN [facility].#: [id number] Admission: 01/31/20 Attend Phys: Mynor Fenton MD Discharge: 02/11/20 Date of : 42 Report #: [id number] EXAMINATION FINDINGS: The patient was alert and cooperative with the assessment. He was able to accurately describe the reason for his hospitalization. There is no evidence of aphasia. His thoughts are logical and goal oriented. There is no evidence of thought disorder. There is no report of auditory or visual hallucinations. He described his symptoms to include anxiety which is longstanding and difficulty with short-term memory. Performance on the MMSE 2 brief version is in the borderline range with a raw score of 13, T score of 35, percentile rank of 7. He was 3/3 for initial registration, 5/5 for orientation to time and place. He was 0/3 for immediate recall of 3 items after a brief time delay and distraction. Performance on the MMSE 2 standard version is within normal limits with a raw score of 26/30 and a T score of 43. He was 5/5 for serial sevens, 2/2 for naming, 1/1 for repetition, 3/3 for auditory comprehension. He could read and follow single command and write a sentence. The patient was unable to copy a simple geometric design. Verbal fluency assessment reveals letter fluency that is extremely low with a raw score of 10, T score of 25, percentile rank of 1. Category fluency is within normal limits with a T score of 52 and percentile rank of 58. Overall, verbal fluency is a raw score of 49, T score of 34 and percentile rank of 5. Severe deficits are noted with logical organization necessary for verbal expression. Clock drawing was impaired. He was unable to accurately place the hands of a clock at a designated time. Stimulus bound effect suggesting executive dysfunction and perseveration is noted. The patient is presenting with deficits in immediate recall, aspects of verbal fluency and executive functioning. This type of presentation suggests neurocognitive disorder. DIAGNOSTIC IMPRESSION: Neurocognitive disorder -- extent to be determined, likely in the moderate range. Generalized anxiety disorder. RECOMMENDATIONS: The patient will require assistance in the management of medication, finances and nutrition. A followup neuropsychological evaluation can assist in clarification of cognitive status. At this time, the extent of his cognitive impairment will require increased [address] [address] CONSULTATION Name: FRANKLIN MCKEON JR Room #: 514-P [facility] IN .R.#: [id number] Admission: 01/31/20 Attend Phys: Mynor Fenton MD Discharge: 02/11/20 Date of : 42 Report #: [id number] environmental support. Continue treatment for anxiety disorder that would include psychological services to assist in development of relaxation techniques will also be helpful. Thank you very much for allowing me to provide the consultation on this patient. <ELECTRONICALLY SIGNED> By: Luis Alberto Antonio, PhD 02/13/20 1930 1342 1411 Luis Alberto Antonio, PhD /nt
--- NOTE | 2020-02-14 15:26 | PLAN ---
[facility] [place] [address] REHAB UNIT PLAN OF CARE Name: FRANKLIN MCKEON Room #: 514-P [facility] IN M.R.#: [id number] Admission: 01/31/20 Attend Phys: Mynor Fenton MD Discharge: 02/11/20 Date of : 42 Report #: [id number] THIS REPORT FOR: //name// CC: Mynor Hsu DATE OF SERVICE: 02/02/2020 PROGRESS NOTE/OVERALL PLAN OF CARE SUBJECTIVE: The patient is seen back today in followup. He is in no distress. Last recorded temperature 98.2, pulse 76, respirations 22, blood pressure 126/64. He is alert. No obvious distress. He is working in therapies and currently has 1 liter nasal cannula O2. Transfers are mod assist. Gait min assist 40 feet front-wheeled walker. In occupational therapy, lower body dressing is dependent. Moderate comprehensive deficits are noted in speech. Moderate cognitive deficits are noted. Moderate to severe memory deficits. ASSESSMENT: 1. Idiopathic peripheral neuropathy. 2. Multifactorial gait instability. 3. Rhabdomyolysis. 4. History of obstructive sleep apnea. 5. Exogenous obesity. 6. 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 7. Hypertension. 8. Chronic back pain. 9. History of pacemaker in 1999 and 2007. PLAN: The overall plan of care is based on the preadmission screen, post-admission physician evaluation and information garnered from therapy assessments. 1. Estimated length of stay is probably at least 10 days to 2 weeks. 2. Medical prognosis is reasonably good. 3. Anticipated interventions includes the interdisciplinary acute inpatient rehabilitation program. 4. Anticipated functional outcomes would be for the patient to become modified independent with transfers, mobility, ADLs, so that he can hopefully return back to his prior living situation. Also to improve cognition. 5. Discharge destination would be back to the home setting where he does live in an apartment. We will need to check on additional assistance as indicated. 6. Expected therapy by discipline includes PT, OT and speech 1 hour per day each five days a week throughout the duration of the acute inpatient rehabilitation program. He is receiving the speech [place] [address] REHAB UNIT PLAN OF CARE Name: FRANKLIN MCKEON Room #: 514-P [facility] IN .R.#: [id number] Admission: 01/31/20 Attend Phys: Mynor Fenton MD Discharge: 02/11/20 Date of : 42 Report #: [id number] cognition, communication. We may be able to taper this as he further progresses in his therapies and focus more on PT and OT. <ELECTRONICALLY SIGNED> By: Mynor Fenton MD 02/14/20 1526 1019 T: 05/2050 Mynor Fenton MD /PMT
== END 2020-02-11 12:45 | disposition home health service (06) | DRG 74 ==
PROVIDERS: Hospitalist; Nurse Practitioner; ADMIT Physical Medicine & Rehabilitation
PROC: 5A09357 Assistance with Respiratory Ventilation, Less than 24 Consecutive Hours, Continuous Positive Airway Pressure (ICD-10-PCS; principal; 2020-01-31)
PROC: 5A09357 Assistance with Respiratory Ventilation, Less than 24 Consecutive Hours, Continuous Positive Airway Pressure (ICD-10-PCS; 2020-02-01)
PROC: 5A09457 Assistance with Respiratory Ventilation, 24-96 Consecutive Hours, Continuous Positive Airway Pressure (ICD-10-PCS; 2020-02-02)
PROC: 5A09557 Assistance with Respiratory Ventilation, Greater than 96 Consecutive Hours, Continuous Positive Airway Pressure (ICD-10-PCS; 2020-02-04)
PROC: 5A09557 Assistance with Respiratory Ventilation, Greater than 96 Consecutive Hours, Continuous Positive Airway Pressure (ICD-10-PCS; 2020-02-06)
DX: G60.9 Hereditary and idiopathic neuropathy, unspecified (principal); M62.82 Rhabdomyolysis; M19.90 Unspecified osteoarthritis, unspecified site; K21.9 Gastro-esophageal reflux disease without esophagitis; E66.01 Morbid (severe) obesity due to excess calories; Z68.35 Body mass index [BMI] 35.0-35.9, adult; R26.9 Unspecified abnormalities of gait and mobility; G47.33 Obstructive sleep apnea (adult) (pediatric); I10 Essential (primary) hypertension; G89.29 Other chronic pain; M54.9 Dorsalgia, unspecified; R09.02 Hypoxemia; G40.909 Epilepsy, unspecified, not intractable, without status epilepticus; F41.9 Anxiety disorder, unspecified; F32.9 Major depressive disorder, single episode, unspecified; E87.6 Hypokalemia; E53.8 Deficiency of other specified B group vitamins; E83.42 Hypomagnesemia; N40.0 Benign prostatic hyperplasia without lower urinary tract symptoms; I49.5 Sick sinus syndrome; S40.012A Contusion of left shoulder, initial encounter; W18.39XA Other fall on same level, initial encounter; I48.0 Paroxysmal atrial fibrillation; F41.1 Generalized anxiety disorder; Z95.0 Presence of cardiac pacemaker; Y93.89 Activity, other specified; Y92.89 Other specified places as the place of occurrence of the external cause; Y99.8 Other external cause status
CPT/HCPCS: 10112

== ENCOUNTER → 2020-02-16 | Outpatient (CLI) | payer OTHER, BC ==
[~2020-02-16] MED LIST changes: +COLACE100 MG PO; +FELODIPINE 5 MG5 M1 PO; +MELATONIN5 M1 PO; +TYLENOL325 MG PO; +ULTRA-LIGHT RO1 EACH; +VITAMIN B-12500 MCG PO; +VITAMIN D325 MCG PO; +VOLTAREN GEL 1100 G2 TOP
== END ==
LOC: SJCVCIMAG 08:06
PROVIDERS: ATTEND Internal Medicine
DX: Z01.818 Encounter for other preprocedural examination (principal); I48.91 Unspecified atrial fibrillation; I11.9 Hypertensive heart disease without heart failure; I25.10 Atherosclerotic heart disease of native coronary artery without angina pectoris; E66.9 Obesity, unspecified; E78.5 Hyperlipidemia, unspecified; I73.9 Peripheral vascular disease, unspecified; Z95.0 Presence of cardiac pacemaker; Z87.891 Personal history of nicotine dependence; Z79.899 Other long term (current) drug therapy; Z88.8 Allergy status to other drugs, medicaments and biological substances

== ENCOUNTER → 2020-06-19 | Outpatient (CLI) | payer OTHER, BC | LOC: SJCVC 10:04 | PROVIDERS: ATTEND Internal Medicine | DX: I48.0 Paroxysmal atrial fibrillation (principal); I10 Essential (primary) hypertension; E78.5 Hyperlipidemia, unspecified; G47.33 Obstructive sleep apnea (adult) (pediatric); M19.90 Unspecified osteoarthritis, unspecified site; K21.9 Gastro-esophageal reflux disease without esophagitis; E66.9 Obesity, unspecified; Z79.899 Other long term (current) drug therapy; Z87.891 Personal history of nicotine dependence; Z95.0 Presence of cardiac pacemaker ==

== ENCOUNTER → 2020-06-28 | Outpatient (CLI) | payer OTHER, BC ==
[~2020-06-28] MED LIST changes: +HYDRALAZINE 5050 MG PO; +KETOCONAZOLE 2%30 GM TOP; +XARELTO20 MG PO
== END ==
LOC: SJCVC 15:03
PROVIDERS: ATTEND Internal Medicine Cardiovascular Disease
DX: R94.31 Abnormal electrocardiogram [ECG] [EKG] (principal); I48.0 Paroxysmal atrial fibrillation; I10 Essential (primary) hypertension; E78.5 Hyperlipidemia, unspecified; Z95.0 Presence of cardiac pacemaker; Z79.899 Other long term (current) drug therapy; Z87.891 Personal history of nicotine dependence

== ENCOUNTER → 2020-06-29 | Outpatient (CLI) | payer OTHER, BC | LOC: LAB 07:29 | PROVIDERS: ATTEND Internal Medicine Cardiovascular Disease | DX: Z01.812 Encounter for preprocedural laboratory examination (principal); Z20.828 Contact with and (suspected) exposure to other viral communicable diseases ==

== ENCOUNTER → 2020-07-03 | Outpatient (CLI) | payer OTHER, BC ==
[~2020-07-03] VITALS: Ht 175.3 cm; Wt 110.2 kg
--- NOTE | ~2020-07-03 | P ---
[facility] [place] [address] PROCEDURE REPORT Name: FRANKLIN MCKEON JR Room #: REG [facility].#: [id number] Admission: 07/03/20 Attend Phys: Manpreet Alexander MD Discharge: Date of : 42 Report #: [id number] THIS REPORT FOR: cc: Juan R Hsu,Manpreet Ingram MD ~ CC: Juan R Alexander DATE OF SERVICE: 07/03/2020 PROCEDURE: Pacemaker generator exchange. PREOPERATIVE DIAGNOSIS: Pacemaker elective replacement indicator. POSTOPERATIVE DIAGNOSIS: Pacemaker elective replacement indicator. HISTORY: The patient is a 79-year-old male with history of permanent AFib, status post pacemaker implantation, whose device is currently at the elective replacement interval. He is here for pacemaker generator exchange. ANESTHESIA: The patient underwent MAC anesthesia with no anesthesia related complications. DESCRIPTION OF PROCEDURE: The patient underwent informed consent. We discussed the details of the procedure including the risks, which include but not limited to bleeding, infection, vascular damage and need for possible lead revisions. He understood these risks and is willing to proceed. The patient was brought to the EP laboratory in a fasting and unsedated state, prepped and draped in sterile fashion. He received IV antibiotics prior to initiation of the procedure. Next, I injected lidocaine at the incision site. Incision was made, the chronic pocket was entered. The old device was disconnected from the leads. New device was connected. Tug test performed and the device was placed in the pocket. There was some mild bleeding at the inferior aspect of the pocket, which I was able to control with electrocautery. The pocket was irrigated with vancomycin and then closed in 2 layers and surgical glue was placed to outer skin layer. The patient awoke neurologically and hemodynamically intact. No complications and no significant bleeding. The explanted pacemaker was Medtronic model #ADDR01, serial #[id number]. The newly implanted device was a Medtronic, model #W3DR01, serial #[id number]. Atrial lead was a model #4568, 53 cm, serial #[id number], implanted on 10/14/2000. The RV lead was a model #4024, 58 cm, serial #[id number], implanted on 10/14/2000. The ventricular lead demonstrated R waves 2 millivolts, impedance 181 and pacing threshold of 1 volt at 0.4 milliseconds. There was no [facility] [address] [place] [address] PROCEDURE REPORT Name: FRANKLIN MCKEONEE Room #: [facility]#: [id number] Admission: 07/03/20 Attend Phys: Manpreet Alexander MD Discharge: Date of : 42 Report #: [id number] noise on the lead and ventricular pacing is at around 40% and he is not dependent. The device was programmed to the VVIR 50-130 mode. CONCLUSIONS: 1. Successful pacemaker generator exchange. 2. Satisfactory atrial and right ventricular pacing and sensing thresholds. By: 1342 1550 Manpreet Alexander MD /nt
[2020-07-03 11:17] VITALS: BP 144/85
[2020-07-03 11:34] LABS: ABSOLUTE NEUTROPHILS 2.8 thou/uL (1.4-8.2); BASOPHILS 0.6 % (0.0-2.0); HEMATOCRIT 36.8 % (42.0-52.0); HEMOGLOBIN 12.4 gm/dL (14.0-18.0); LYMPHOCYTES 27.5 % (24.0-44.0); MCH 31.2 pg (26.0-34.0); MCHC 33.7 g/dL (28.0-37.0); MCV 92.6 fL (80.0-100.0); MONOCYTES 8.8 % (1.0-8.0); PLATELET COUNT 157 thou/uL (150-400); POLYS 55.1 % (36.0-66.0); RBC 3.97 mil/uL (4.50-6.00); WBC 5.1 thou/uL (4.0-11.0)
[2020-07-03 11:46] LABS: CALCIUM 9.6 mg/dL (8.5-10.1); CREATININE 1.1 mg/dL (0.7-1.3); POTASSIUM 4.1 mmol/L (3.5-5.1)
[2020-07-03 11:52] LABS: ALBUMIN 3.6 g/dL (3.4-5.0); TOTAL BILIRUBIN 0.5 mg/dL (0.2-1.0); TOTAL PROTEIN 6.9 g/dL (6.4-8.2)
[2020-07-03 11:59] LABS: INR 1.1; PROTIME 11.1 Seconds (9.3-11.4)
== END | disposition home or self-care (01) ==
LOC: CATH 10:54
PROVIDERS: ATTEND Internal Medicine Cardiovascular Disease
DX: Z45.010 Encounter for checking and testing of cardiac pacemaker pulse generator [battery] (principal); I48.21 Permanent atrial fibrillation; I10 Essential (primary) hypertension; I73.9 Peripheral vascular disease, unspecified; F32.9 Major depressive disorder, single episode, unspecified; N40.0 Benign prostatic hyperplasia without lower urinary tract symptoms; E66.01 Morbid (severe) obesity due to excess calories; F41.9 Anxiety disorder, unspecified; K21.9 Gastro-esophageal reflux disease without esophagitis; G62.9 Polyneuropathy, unspecified; G47.33 Obstructive sleep apnea (adult) (pediatric); Z98.890 Other specified postprocedural states; Z79.899 Other long term (current) drug therapy; Z87.891 Personal history of nicotine dependence; Z79.01 Long term (current) use of anticoagulants; Z88.8 Allergy status to other drugs, medicaments and biological substances
CPT/HCPCS: 62110; 62900; 70005

== ENCOUNTER → 2020-07-11 | Outpatient (CLI) | payer OTHER, BC | LOC: SJCVC 10:35 | PROVIDERS: ATTEND Internal Medicine Cardiovascular Disease | DX: Z45.018 Encounter for adjustment and management of other part of cardiac pacemaker (principal); I48.0 Paroxysmal atrial fibrillation; I49.5 Sick sinus syndrome; I10 Essential (primary) hypertension; E78.5 Hyperlipidemia, unspecified; Z79.899 Other long term (current) drug therapy; Z87.891 Personal history of nicotine dependence ==

== ENCOUNTER → 2020-07-19 | Outpatient (CLI) | payer OTHER, BC ==
[~2020-07-19] MED LIST changes: +CLONAZEPAM 0.50.5 M1 PO; +NORVASC 2.5 MG2.5 M1 PO; +TAMBOCOR 100 M100 MG PO; -TRAZODONE 150150 M1 PO; +TRAZODONE HCL100 MG PO
== END ==
LOC: SJCVCIMAG 06:58
PROVIDERS: ATTEND Internal Medicine Cardiovascular Disease
DX: I48.0 Paroxysmal atrial fibrillation (principal); I49.5 Sick sinus syndrome; I49.3 Ventricular premature depolarization; G47.30 Sleep apnea, unspecified; Z95.0 Presence of cardiac pacemaker; Z79.899 Other long term (current) drug therapy; Z87.891 Personal history of nicotine dependence

== ENCOUNTER → 2020-07-24 | Outpatient (CLI) | payer OTHER, BC | LOC: LAB 13:54 | PROVIDERS: ATTEND Internal Medicine Cardiovascular Disease | DX: Z01.812 Encounter for preprocedural laboratory examination (principal); Z20.828 Contact with and (suspected) exposure to other viral communicable diseases ==

== ENCOUNTER → 2020-07-28 | Outpatient (CLI) | payer OTHER, BC ==
[~2020-07-28] VITALS: Ht 175.3 cm; Wt 122.9 kg
--- NOTE | ~2020-07-28 | P ---
[facility] [address] [place] [address] PROCEDURE REPORT Name: FRANKLIN MCKEON JR Room #: REG [facility] Nancy.#: [id number] Admission: 07/28/20 Attend Phys: Manpreet Alexander MD Discharge: Date of : 42 Report #: [id number] THIS REPORT FOR: cc: Juan R Hsu,Manpreet Ingram MD ~ CC: Juan R Alexander DATE OF SERVICE: 07/28/2020 PROCEDURE: Cardioversion PREOPERATIVE DIAGNOSIS: Atrial fibrillation. POSTOPERATIVE DIAGNOSES: 1. Successful DC cardioversion with sabianist of sinus rhythm. 2. Successful Medtronic dual chamber pacemaker reprogramming. DESCRIPTION OF PROCEDURE: The patient underwent informed consent. He was prepped and draped in a standard fashion. Patches were placed in AP position. His pacemaker, Medtronic, was interrogated and demonstrated that he was in atrial fibrillation. He was programmed in the VVIR mode. I reprogrammed his device to the AAIR/DDDR mode. Lower rate was set to 60. The patient was then sedated by Anesthesia and a 200 joule synchronized cardioversion was performed with sabianist of sinus rhythm. Atrial threshold was noted to be 0.75 volts at 0.4 milliseconds. His atrial outputs were programmed accordingly. There were no procedure related complications. CONCLUSIONS: 1. DC cardioversion. 2. Pacemaker reprogramming. By: 0839 0109 Manpreet Alexander MD /jesús
[2020-07-28 07:24] VITALS: BP 157/78
[2020-07-28 07:59] LABS: ABSOLUTE NEUTROPHILS 2.7 thou/uL (1.4-8.2); BASOPHILS 0.3 % (0.0-2.0); EOSINOPHILS 8.8 % (0.0-3.0); HEMATOCRIT 38.7 % (42.0-52.0); HEMOGLOBIN 12.5 gm/dL (14.0-18.0); LYMPHOCYTES 20.9 % (24.0-44.0); MCH 30.3 pg (26.0-34.0); MCHC 32.4 g/dL (28.0-37.0); MCV 93.5 fL (80.0-100.0); MONOCYTES 8.6 % (1.0-8.0); PLATELET COUNT 147 thou/uL (150-400); POLYS 61.4 % (36.0-66.0); RBC 4.14 mil/uL (4.50-6.00); RDW 14.7 % (10.5-14.5); WBC 4.4 thou/uL (4.0-11.0)
[2020-07-28 08:16] LABS: APTT 32.8 Seconds (24.5-32.8); INR 1.2; PROTIME 12.7 Seconds (9.3-11.4)
[2020-07-28 08:24] LABS: CALCIUM 9.9 mg/dL (8.5-10.1); CREATININE 1.2 mg/dL (0.7-1.3); POTASSIUM 4.2 mmol/L (3.5-5.1)
[2020-07-28 08:29] LABS: ALBUMIN 3.8 g/dL (3.4-5.0); TOTAL BILIRUBIN 0.6 mg/dL (0.2-1.0); TOTAL PROTEIN 7.2 g/dL (6.4-8.2)
== END | disposition home or self-care (01) ==
LOC: CATH 06:25
PROVIDERS: ATTEND Internal Medicine Cardiovascular Disease
DX: I48.91 Unspecified atrial fibrillation (principal); I10 Essential (primary) hypertension; G62.9 Polyneuropathy, unspecified; G47.33 Obstructive sleep apnea (adult) (pediatric); F32.9 Major depressive disorder, single episode, unspecified; F41.9 Anxiety disorder, unspecified; K50.90 Crohn's disease, unspecified, without complications; K21.9 Gastro-esophageal reflux disease without esophagitis; E66.01 Morbid (severe) obesity due to excess calories; Z98.890 Other specified postprocedural states; Z79.899 Other long term (current) drug therapy; Z79.01 Long term (current) use of anticoagulants; Z88.8 Allergy status to other drugs, medicaments and biological substances
CPT/HCPCS: 62110; 62900

== ENCOUNTER → 2020-08-29 | Outpatient (CLI) | payer OTHER, BC | LOC: SJCVC 09:36 | PROVIDERS: ATTEND Internal Medicine Cardiovascular Disease | DX: R94.31 Abnormal electrocardiogram [ECG] [EKG] (principal); I45.4 Nonspecific intraventricular block; I48.19 Other persistent atrial fibrillation; I48.0 Paroxysmal atrial fibrillation; I49.5 Sick sinus syndrome; E66.9 Obesity, unspecified; G47.33 Obstructive sleep apnea (adult) (pediatric); I10 Essential (primary) hypertension; Z95.0 Presence of cardiac pacemaker; Z79.899 Other long term (current) drug therapy; Z87.891 Personal history of nicotine dependence ==

== ENCOUNTER → 2020-11-09 | Outpatient (CLI) | payer OTHER, BC | LOC: CAT 10:59 | PROVIDERS: ATTEND Internal Medicine Rheumatology | DX: M43.16 Spondylolisthesis, lumbar region (principal); M47.816 Spondylosis without myelopathy or radiculopathy, lumbar region; G62.9 Polyneuropathy, unspecified; M48.07 Spinal stenosis, lumbosacral region ==

== ENCOUNTER → 2020-12-07 | Outpatient (CLI) | payer OTHER, BC | LOC: SJCVC 13:51 | PROVIDERS: ATTEND Internal Medicine | DX: R94.31 Abnormal electrocardiogram [ECG] [EKG] (principal); I48.0 Paroxysmal atrial fibrillation; I10 Essential (primary) hypertension; E78.5 Hyperlipidemia, unspecified; G47.33 Obstructive sleep apnea (adult) (pediatric); M19.90 Unspecified osteoarthritis, unspecified site; K21.9 Gastro-esophageal reflux disease without esophagitis; E66.9 Obesity, unspecified; F41.9 Anxiety disorder, unspecified; F32.9 Major depressive disorder, single episode, unspecified; Z79.899 Other long term (current) drug therapy; Z87.891 Personal history of nicotine dependence; Z95.0 Presence of cardiac pacemaker; Z88.1 Allergy status to other antibiotic agents ==

== ENCOUNTER → 2021-06-08 | Outpatient (CLI) | payer OTHER, BC | LOC: SJCVC 13:20 | PROVIDERS: ATTEND Internal Medicine | DX: I48.0 Paroxysmal atrial fibrillation (principal); I10 Essential (primary) hypertension; E78.5 Hyperlipidemia, unspecified; G47.33 Obstructive sleep apnea (adult) (pediatric); K21.9 Gastro-esophageal reflux disease without esophagitis; E66.9 Obesity, unspecified; F41.9 Anxiety disorder, unspecified; F32.9 Major depressive disorder, single episode, unspecified; Z95.0 Presence of cardiac pacemaker; Z79.899 Other long term (current) drug therapy; Z87.891 Personal history of nicotine dependence; Z88.1 Allergy status to other antibiotic agents ==